=== PATIENT | male | born 2005 | race Caucasian/White ===

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

== ENCOUNTER 2023-09-15 15:28 | Outpatient (CLI) | payer BC, SELFPAY ==
[2023-09-15 11:50] LABS: Calculated LDL 200 mg/dL (<100); Cholesterol 272 mg/dL (<200); HDL Cholesterol 56 mg/dL (40-60); Triglyceride 80 mg/dL (<150)
--- OUTSIDE RECORDS SUMMARY | 2023-09-15 15:35 | XMS_ITS | Encounter Summary ---
[place] [address] Care Team Providers Care County Nurse Name Role Phone Manish Bhardwaj MD Primary Care Provider Reason for Referral * Diagnostic Test (Routine) - Authorized Specialty Diagnoses / Procedures Referred By Contac t Referred To Contact Diagnoses Elevated blood pressure reading without diagnosis of hypertension Procedures Echocardiogram Pedi Echocardiogram Silasi Luisana Walsh MD [facility] PEDIATRIC [place] [address] [facility] [place] [address] Referral ID Status Reason Start Date Expiration Date Visits Requested Visits Authorized [id number] Authorized Specialty Service Requested 10/04/2023 07/28/2024 1 1 Encounter Details Date Type Department Care Team (Late st Contact Info) Description 07/29/2023 Orders Only [place] [address] Luisana Walsh MD [facility] PEDIATRIC [place] [address] Elevated blood pressure reading without diagnosis of hypertension; Elevated LDL cholesterol level Social History Tobacco Use Types Packs/Day Years Used Date Smoking Tobacco: Never Smokeless Tobacco: Never Sex and Gender Information Value Date Recorded Sex Assigned at Not on file Gender Identity Not on file Sexual Orientation Not on file documented as of this encounter Plan of Treatment Upcoming Encounters Date Type Department Care Team (Late st Contact Info) Description 10/04/2023 9:30 AM EDT Appointment [place] [address] Luisana Walsh MD [facility] DR PEDIATRIC [place] [address] 10/04/2023 10:30 AM EDT Scheduled View [place] [address] 10/04/2023 11:00 AM EDT Office Visit [place] [phone] Luisana Walsh MD [facility] DR PEDIATRIC [place] [address] 10/04/2023 11:30 AM EDT Office Visit [place] [phone] Kam Huggins, DO [address] [facility] [place] [address] Scheduled Orders Name Type Priority Associated Diagnoses Orde r Schedule Lipid Panel (Reflex Direct LDL) Lab Routine Elevated LDL cholesterol level Expected: 07/29/2023, Expires: 01/28/2024 Lipoprotein A Lab Routine Elevated LDL cholesterol level Expected: 07/29/2023, Expires: 01/27/2025 Echocardiogram Pedi Echocardiography Routine Elevated blood pressure reading without diagnosis of hypertension Expected: 07/29/2023, Expires: 01/27/2025 documented as of this encounter Visit Diagnoses Diagnosis Elevated blood pressure reading without diagnosis of hypertension Elevated LDL cholesterol level Pure hypercholesterolemia documented in this encounter Care Teams County Nurse Relationship Specialty Start Date End Date Manish Bhardwaj MD [address] [place] [address] PCP - General Pediatrics 10/03/22 documented as of this encounter
--- OUTSIDE RECORDS SUMMARY | 2023-09-15 15:35 | XMS_ITS | Clinical Summary ---
[place] [address] Care Team Providers Care Meat Stringer Name Role Phone Manish Bhardwaj MD Primary Care Provider Allergies Active Allergy Reactions Criticality Noted Date Comments Cat Dander Itching Low 01/21/2020 Horse Dander 09/27/2022 Pollen Extracts 12/28/2018 Medications Medication Sig Dispensed Refills Start Date End Date Status ubiquinone (coenzyme Q10) 100 mg Capsule Take by mouth. 01/21/2020 Active [place]-3 Fatty Acids 100 mg Tablet, Chewable Take by mouth. 01/21/2020 A ctive levocetirizine (XYZAL) 5 mg Tablet Take by mouth. 06/08/2018 Active montelukast (Singulair) 5 mg Tablet, Chewable Take by mouth. 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 Elevated blood pressure read ing without diagnosis of hypertension 12/28/2018 Elevated LDL cholesterol level 12/28/2018 Encounters Date Type Department Care Team Description 08/03/2023 Telephone [place] [address] Luisana Walsh MD 07/29/2023 Orders [place] [address] Luisana Walsh MD Elevated blood pressure reading without diagnosis of hypertension; Elevated LDL cholesterol level from Last 3 Months Family History Medical History Relation Comments Heart Disease Maternal Aunt Sjogren's Syndrome Maternal Aunt Hypertension Maternal Grandmother Relation Status Comments Maternal Aunt Maternal Grandmother Social History Tobacco Use Types Packs/Day Years Used Date Smoking Tobacco: Never Smokeless Tobacco: Never Sex and Gender Information Value Date Recorded Sex Assigned at Not on file Gender Identity Not on file Sexual Orientation Not on file Last Filed Vital Signs Vital Sign [place] Time Taken Comments Blood Pressure 124/66 09/27/2022 10:12 AM EDT Pulse 68 09/27/2022 9:24 AM EDT Temperature - - Respiratory Rate - - Oxygen Saturation 100% 05/11/2021 9:48 AM EDT Inhaled Oxygen Concentration - - Weight 76.4 kg (168 lb 8 oz) 09/27/2022 9:24 AM EDT Height 177.2 cm (5' 9.75) 09/27/2022 9:24 AM ED T Body Mass Index 24.35 09/27/2022 9:24 AM EDT Body Mass Index Percentile 72.16% 09/27/2022 9:2 4 AM EDT Growth Chart: CDC (Boys, 2-2 0 Years) Plan of Treatment Upcoming Encounters Date Type Department Care Team (Late st Contact Info) Description 10/04/2023 9:30 AM EDT Appointment [place] [address] Luisana Walsh MD [facility] [place] [address] 10/04/2023 10:30 AM EDT Scheduled View [place] [address] 10/04/2023 11:00 AM EDT Office Visit [place] [address] Luisana Walsh MD [facility] [place] [address] 10/04/2023 11:30 AM EDT Office Visit [place] [address] Kam Huggins, DO [address] [facility] [place] [address] Health Maintenance Due Date Last Done Comments HPV vaccine (1 - Male 3-dose series) 11/20/2018 HIV screen 11/20/2021 Hepatitis C Screening 11/20/2021 Covid-19 Vaccine (1 - 2022-24 season) 2022 Hepatitis B vaccine (0-59 yrs) (1) 11/20/2022 Tdap adult 11/20/2022 Tetanus vaccine 11/20/2022 Influenza (Flu) vaccine (1 o f 1 - Influenza standard series) 10/16/2023 Care Teams Meat Stringer Relationship Specialty Start Date End Date Manish Bhardwaj MD [address] [place] [address] PCP - General Pediatrics 10/03/22
--- OUTSIDE RECORDS SUMMARY | 2023-09-15 15:35 | XMS_ITS | Encounter Summary ---
Author Organization [facility] Address [facility] [place] [address] Care Team Providers Care Asset Recovery Specialist Name Role Phone Manish Bhardwaj MD Primary Care Provider [phone] Encounter Details Date Type Department Care Team (Late st Contact Info) Description 08/03/2023 Telephone Pediatric [place] [phone] Luisana Walsh MD [facility] DR [place] [address] Social History Tobacco Use Types Packs/Day Years Used Date Smoking Tobacco: Never Smokeless Tobacco: Never Sex and Gender Information Value Date Recorded Sex Assigned at Not on file Gender Identity Not on file Sexual Orientation Not on file documented as of this encounter Miscellaneous Notes * Telephone Encounter - Luisana Walsh MD - 08/03/2023 9:05 AM EDT ----- Message from Laurie Cerna sent at 08/01/2023 1:53 PM EDT ----- Regarding: RE: follow up visit missed Patient would like to have Labs done more locally at [facility] and then sent here. ----- Message ----- From: Luisana Walsh MD Sent: 07/29/2023 9:18 PM EDT To: Laurie Archuleta Subject: RE: follow up visit missed Orders for echo and lipid panel are in. I also added something called lipoprotien (a) which is a newer marker we are checking on kids at risk in case the family asks - its becoming a standard part oflipid panel checks. Can you see if they can set up a follow up with param sheikh the same day? That's what the last nephro note said - follow up in summer 2023 to coordinate with our visit. Lastly, when you schedule, can you please put in note Needs 4-ext BPs Thank you, Luisana ----- Message ----- From: Laurie Archuleta Sent: 07/27/2023 4:32 PM EDT To: Luisana Walsh MD Subject: follow up visit missed Patient missed recall (I called) and is looking to be scheduled. Your plan in the recall is Office visit and echocardiogram, with lipid panel prior to appt.There will be an ECHO order needed and if lipid panel is needed too those orders as well. Let me know if we are still going with this plan and I can then call mom back to schedule. Thank you. documented in this encounter Plan of Treatment Upcoming Encounters Date Type Department Care Team (Late st Contact Info) Description 10/04/2023 9:30 AM EDT Appointment [place] [address] Luisana Walsh MD [facility] [place] [address] 10/04/2023 10:30 AM EDT Scheduled View Only [place] [address] 10/04/2023 11:00 AM EDT Office Visit [place] [address] Luisana Walsh MD [facility] [place] [address] 10/04/2023 11:30 AM EDT Office Visit [place] [address] Kam Huggins, DO [address] [facility] [place] [address] documented as of this encounter Visit Diagnoses Not on filedocumented in this encounter Care Teams Asset Recovery Specialist Relationship Specialty Start Date End Date Manish Bhardwaj [place] [address] PCP - General Pediatrics 10/03/22 documented as of this encounter
--- OUTSIDE RECORDS SUMMARY | 2023-09-15 15:35 | XMS_ITS | Encounter Summary ---
[place] [address] Care Team Providers Care Ramp Service Man Name Role Phone Unknown Primary Care Provider Unavailabl e Encounter Details Date Type Department Care Team (Latest Contact Info) Description 09/27/2022 Travel Social History Tobacco Use Types Packs/Day Years [...] 9:30 AM EDT Appointment [place] [address] Luisana Walsh MD [facility] [place] [address] 10/04/2023 10:30 AM EDT Scheduled View [place] [address] 10/04/2023 11:00 AM EDT Office [place] [address] Luisana Walsh MD [facility] [place] [address] 10/04/2023 11:30 AM EDT Office Visit [place] [address] Kam Huggins, DO [address] [facility] PEDIATRIC [place] [address] documented as of this encounter Visit Diagnoses Not on filedocumented in this encounter Care Teams Ramp Service Man Relationship Specialty Start Date End Date Unknown None PCP - General 06/30/21 10/02/22 documented as of this encounter
--- OUTSIDE RECORDS SUMMARY | 2023-09-15 15:35 | XMS_ITS | Encounter Summary ---
Author Organization [facility] [place] [address] Care Team Providers Care Honing Machine Operator Name Role Phone Unknown Primary Care Provider Unavailabl e Encounter Details Date Type Department Care Team (Late st Contact Info) Description 09/27/2022 9:30 AM EDT Office Visit [place] [address] Saad Munroe MD [facility] [place] [address] Elevated blood pressure reading without diagnosis of hypertension Social History Tobacco Use Types Packs/Day Years Used Date Smoking Tobacco: Never Smokeless Tobacco: Never Sex and Gender Information Value Date Recorded Sex Assigned at Not on file Gender Identity Not on file Sexual Orientation Not on file documented as of this encounter Last Filed Vital Signs Vital Sign Reading Time Taken Comments Blood Pressure 124/66 09/27/2022 10:12 AM EDT Pulse 68 09/27/2022 9:24 AM EDT Temperature - - Respiratory Rate - - Oxygen Saturation - - Inhaled Oxygen Concentration - - Weight 76.4 kg (168 lb 8 oz) 09/27/2022 9:24 AM EDT Height 177.2 cm (5' 9.75) 09/27/2022 9:24 AM ED T Body Mass Index 24.35 09/27/2022 9:24 AM EDT Body Mass Index Percentile 72.16% 09/27/2022 9:2 4 AM EDT Growth Chart: CDC (Boys, 2-2 0 Years) documented in this encounter Patient Instructions * Patient Instructions* Saad Munroe MD - 09/27/2022 9:30 AM EDT It was a pleasure meeting you today. Thank you again for coming to see us. As discussed, your BP today was borderline elevated for the top number (aka systolic), but completely normal on the bottom number (diastolic). I think it's reasonable to hold off on a BP med for now and see how things are going next summer. Just remember, always stay active and eat well, including lots of fruits and vegetables. We'll plan to see you next summer in coordination with peds cardiology. It was a pleasure meeting you today. Thank you again for coming to see us. documented in this encounter Progress Notes * Saad Munroe MD - 09/27/2022 9:30 AM EDT Pediatric Nephrology Follow-up Clinic Visit HPI: Aureliano Mancilla is an 16 y.o. 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 He's had a 24 hr ABPM in 12/2018 was normal and reassuring, with borderline systolic and diastolic loads of ~26% while asleep only. Labs in 11/2018 showed normal BMP with normal renal function ([facility] mg/dL at [facility] A repeat 24- hour ABPM from 10/2021 showed elevated systolic blood pressures but normal diastolic BP's more while asleep, and abnormal dipping at < 10%. He's had renal US w/ dopplers in 07/2019 that did not reveal any evidence of significant renal artery stenosis, and normalhealthy appearing kidneys. 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 Whether or not this has contributed to his more elevated BP's in the past is not completely clear. Interval HPI: He is here for a follow-up visit with his mother and father in attendance. We last saw him about 5 months ago in 04/2022, where his BP was reportedly 122/58 mmHg in clinic. He's been doing well since we last saw him and remains asymptomatic from a BP standpoint. He decided on [employer] for college, and will be starting Freshman year this fall. Manual auscultation in clinic today revealed BP's of 124/66 mmHg and 132/70 mmHg. He's never had a UTI or any urinary concerns. He is active and eats a relatively well balanced diet. He's played soccer and basketball throughout high school. No issues with sleep. FH of hypertension on maternal side; both maternal grandparents and great grandparents have h/o HTN. Mom does not have HTN. PCP: [facility] Since his last visit he has been on the Current Outpatient Medications: ubiquinone (coenzyme Q10) 100 mg Capsule, Take by mouth., Disp: , Rfl: [place]-3 Fatty Acids 100 mg Tablet, Chewable, Take by mouth., Disp: , Rfl: levocetirizine (XYZAL) 5 mg Tablet, Take by mouth., Disp: , Rfl: montelukast (Singulair) 5 mg Tablet, Chewable, Take by mouth., Disp: , Rfl: Problem List: Patient Active Problem List Diagnosis Code Elevated blood pressure reading without diagnosis of hypertension R03.0 Elevated LDL cholesterol level E78.00 Hypoplasia of aortic arch Q25.42 History of circumcision Z98.890 PMHx:History reviewed. No pertinent past medical history. PSHx:History reviewed. No pertinent surgical history. SocHx: Social History Social History Narrative Lives with his mother and father. Will be starting college at [employer] in the Fall of 2022. FamHx: Family History Problem Relation Age of Onset Heart Disease Maternal Aunt Sjogren's Syndrome Maternal Aunt Hypertension Maternal Grandmother Allergies: is allergic to horse dander, pollen extracts, and cat dander. ROS: 10 systems reviewed and negative other than noted above. Health Maintenance: Health Maintenance Topic Date Due Hepatitis B vaccine (0-59 yrs) (1) Never done Covid-19 Vaccine (1) Never done Hepatitis A vaccine 0-18 yrs (1 of 2 - 2-dose series) Never done Varicella vaccine 1-18 yrs (1 of 2 - 2-dose childhood series) Never done MMR vaccine 1-18 yrs (1) Never done Dtap/DT/Tdap/TD vaccines 0-18yrs (1 - Tdap) Never done HPV vaccine (1 - Male 2-dose series) Never done Meningococcal vaccine 0-18 yrs (1 - 2-dose series) Never done Hepatitis C Screening Never done HIV screen Never done Influenza (Flu) vaccine (1 of 1 - Influenza standard series) 10/15/2022 Polio Vaccine 0-18 yrs Aged Out Objective: BP 124/66 (BP Location (NBP): Left arm, Patient Position: Sitting, BP Cuff Sizes: Adult (25-34 cm)) Pulse 68 Ht 177.2 cm (5' 9.75) Wt 76.4 kg (168 lb 8 oz) BMI 24.35 kg/m?? Wt Readings from Last 3 Encounters: 09/27/22 76.4 kg (168 lb 8 oz) (73 %)* 04/20/22 78.3 kg (172 lb 9.6 oz) (79 %)* 12/17/21 77.1 kg (170 lb) (78 %)* * Growth percentiles are based on CDC (Boys, 2-20 Years) data. .Body mass index is 24.35 kg/m??. Blood pressure percentiles are not available for patients who are 18 years or older. Physical Exam: General: WD, WN in NAD; pleasant and interactive adolescent male HEENT: Normocephalic, atraumatic; external ears normal and symmetric; Extraocular muscles intact, Sclerae anicteric; Oropharynx and nasopharynx without erythema, hemorrhage, or exudate. Neck: supple, no adenopathy or thyromegaly CVS: regular rate and rhythm; S1 and S2 appreciated without murmurs. Distal pulses 2+ & symmetric, Capillary refill < 2 seconds Lungs: chest symmetric and clear to auscultation bilaterally with vesicular breath sounds; no wheezes or crackles Abdomen: Soft, non-tender, non-distended, no hepatosplenomegaly or masses. Renal angles are nontender. Bowel sounds are normal. Extremities: warm and well perfused; no cyanosis or edema Skin: normal turgor; clear with no rashes, lesions, or skin breakdown Musculoskeletal: Joints are normal and his spine is unremarkable. Neurological: alert & active; strength and sensation grossly intact throughout; reflexes symmetric and intact; no focal deficits identified. Gait normal. Labs obtained today: I have reviewed prior labs and imaging. Did no provide a urine sample today. Assessment/ Plan : Aureliano Mancilla is a 16 y.o. male with no significant PMH other than seasonal allergies,who we are seeing as a follow-up for h/o elevated blood pressure/hypertension, suspected to be essential in nature. His BP today was 124/66 mmHg and 132/70 mmHg, which is elevated/borderline State I HTN for systolic, and completely normal for diastolic. He's overall doing well and asymptomatic from a BP standpoint. He's had a normal renal ultrasound, normal kidney function, and no evidence of long-standing hypertension per his last echo in 04/2021, so I thought it was reasonable to hold off on starting an antihypertensive medication at this point in time, which is his preference as well, and to continue to monitor him and see how things are going next summer. Just remember, always stay active and eat well, including lots of fruits and vegetables. We'll plan to see you next summer, 2023 in coordination with peds cardiology, who plans to repeat your echo at that time. Will consider repeating a set of labs at that time as well. Saad Munroe MD Pediatric Nephrology [facility]'s Manish Bhardwaj MD 40 minutes were personally spent by myself on this date of service managing this patient's care. Activities included all or some of the following: preparing to see the patient (e.g., review of vitalsand lab/imaging results), obtaining and/or reviewing a separately obtained history, performing a medically appropriate exam and/or evaluation, counseling and educating the patient/family/caregiver, ordering medications, tests, or procedures, referring and communicating with other health child caregiver (when not separately reported), documenting clinical information in the electronic or other health record, independently interpreting results (not separately reported) and communicating results to the patient/family/caregiver, and/or care coordination (not separately reported). documented in this encounter Plan of Treatment Upcoming Encounters Date Type Department Care Team (Late st Contact Info) Description 10/04/2023 9:30 AM EDT Appointment [place] [address] [facility] [place] [address] 10/04/2023 10:30 AM EDT Scheduled View [place] [address] 10/04/2023 11:00 AM EDT Office [place] [address] [facility] [place] [address] 10/04/2023 11:30 AM EDT Office Visit [place] [address] Kam Huggins, DO [address] [facility] [place] [address] documented as of this encounter Visit Diagnoses Diagnosis Elevated blood pressure reading without diagnosis of hypertension documented in this encounter Care Teams Honing Machine Operator Relationship Specialty Start Date End Date Unknown None PCP - General 06/30/21 10/02/22 documented as of this encounter
--- OUTSIDE RECORDS SUMMARY | 2023-09-15 15:35 | XMS_ITS | Encounter Summary ---
[place] [address] Care Team Providers Care R&D Engineer Name Role Phone Unknown Primary Care Provider Unavailabl e Encounter Details Date Type Department Care Team (Latest Contact Info) Description 04/20/2022 Travel Social History Tobacco Use Types Packs/Day [...] 9:30 AM EDT Appointment [place] [address] Luisana Walsh MD [facility] [place] [address] 10/04/2023 10:30 AM EDT Scheduled View [place] [address] 10/04/2023 11:00 AM EDT Office [place] [address] Luisana Walsh MD [facility] [place] [address] 10/04/2023 11:30 AM EDT Office [place] [address] Kam Huggins, DO [address] [facility] [place] [address] documented as of this encounter Visit Diagnoses Not on filedocumented in this encounter Care Teams R&D Engineer Relationship Specialty Start Date End Date Unknown None PCP - General 06/30/21 10/02/22 documented as of this encounter
--- OUTSIDE RECORDS SUMMARY | 2023-09-15 15:35 | XMS_ITS | Encounter Summary ---
[place] [address] Care Team Providers Care Manager Paid Name Role Phone Unknown Primary Care Provider Unavailabl e Encounter Details Date Type Department Care Team (Late st Contact Info) Description 04/20/2022 11:00 AM EST Office Visit [place] [phone] Kam Huggins, DO [address] [facility] PEDIATR[facility] [place] [address] Hypertension, unspecified type Social History Tobacco Use Types Packs/Day Years Used Date Smoking Tobacco: Never Smokeless Tobacco: Never Sex and Gender Information Value Date Recorded Sex Assigned at Not on file Gender Identity Not on file Sexual Orientation Not on file documented as of this encounter Last Filed Vital Signs Vital Sign Reading Time Taken Comments Blood Pressure 138/60 04/20/2022 11:13 AM EST thiago Pulse - - Temperature - - Respiratory Rate - - Oxygen Saturation - - Inhaled Oxygen Concentration - - Weight 78.3 kg (172 lb 9.6 oz) 04/21/19 11:13 AM EST Height 176.3 cm (5' 9.4) 04/20/2022 11 :13 AM EST Body Mass Index 25.2 04/20/2022 11:13 AM EST Body Mass Index Percentile 80.89% 04/20 11:13 AM EST Growth Chart: CDC (Boys, 2-2 0 Years) documented in this encounter Patient Instructions * Patient Instructions* Kam Huggins, DO - 04/20/2022 11:00 AM EST Aureliano's Plan: Will see back in 6 months Take BP at home or at school and let us know the results. Can work with the health center when you are there Continue current therapies: CoQ10 to 200-400 mg a day, Range 3 fats to 2000 mg a day Will consider BP meds 80/20 rule for school Ok for [facility] Call if any questions Prior recs The anti-inflammatory diet I recommend increasing fruits and vegetables up to at least 5 servings per day, use olive oil or canola oil only, increase grains and keep noodles al dente. Smoothies are agreat way to increase your fruit intake. You could add ground flax seed to it to add the Range 3???s. We can discuss the elimination diet in the future if you would like or see no improvement. Remember to think of your food as part of your healing process. Vitamin D3: 2000 Units/day Fish oil/krill oil/flaxseed: If possible take 2-4grams per day. We want the highest dose of DHA/EPAas possible, as close to 1-2gms per day. Therefore, I would start with about 2 caps per day and increase to twice a day if tolerated or about 1 tsp of the oil. KiddOmega from Entrec, 1 tsp a day, from [employer] or Fandeavor, Vino Volo Range-3 (350 mg of EPA and 230 mg of DHA per packet) are ones I commonly used in children. Also consider Barleans flavored omega 3???s or Marana Naturals Juan M chewables. If you choose to use flaxseed oil, you will need to double the dose. Also, you can add 2 teaspoons to 2 tablespoons of ground flaxseed to your food every day. To avoid GI side effe cts, freeze the capsules, get enteric coated capsules and /or take with food. Do not get gummies, they have very little to no fish oil in them. Hypnosis/Mind-Body: Hypnosis can be helpful for the above issues. If you want to start using this technique, make a recording of the transcript from the handouts we gave you and practice it every night before you go to sleep. If you need more help with this we can work with it here in my office or set you up with a local practitioner. In addition, If you want to try biofeedback instead, I recommend the system at [employer], [employer] or we can work with you here in my office with a similar technique. See sheets. Exercise every day as previously discussed, in particular yoga/jermaine chi/walking/dancing. For yoga there are a number of videos or teachers. If you need help finding a teacher please call the office. To start, I usually recommend one full class a week and practice 10 to 15 min. a day. Remember to thank your body for all of its wellness as you start your daily training. Relaxation online and CD resources http://www.mindfulnessWasabi 3D.Groupsite/ Dr Hernandez Miller's mindfulness meditation tapes http://www.MailFrontier.Groupsite/pmr.htm Guide to progressive muscle relaxation http://www.DxUpClose/health/yoga/HL45837 5 Yoga poses for stress management http://www.Inneractive.org/ Connecting students with teachers in the area. www.Tosk.com Search for meditation, relaxation, guided visualization or yoga. Keep sifting through until you find what you like and then write it down so you can revisit. http://www.[facility].edu/files/webfm-uploads/documents/outreach/im/module_medi tation_patient.pdf Handout on types of meditation/CDs: Breathing: the Master Busby to Self-Healing (Chad Ponce) Relieve Anxiety (Jose Mckoy), also Deep Sleep (Leelee) For Breath work consider: http://doasone.com/Default.aspx Botanicals/Supplements Dark chocolate (70% cocoa content) in place of other sweets Consider coenzyme Q10 100-400 mg a day Consider hawthorn, an herb which promotes overall cardiovascular health See handout documented in this encounter Progress Notes * Kam Huggins DO - 04/20/2022 11:00 AM EST Pediatric Nephrology/Integrative Medicine Progress Note Aureliano Mancilla is an 16 y.o. male with elevated BP who we are seeing for integrative techniques regarding the above. Referred by PCP * Please note: speech recognition soft ricks was used to generate this report. Although it is proofed for any obvious mistakes, please excuse any spelling or incorrect grammar that may have been missed. HISTORY OF PRESENT ILLNESS He has been doing well since his last visit to the program. He is trying decide where to go to the [facility] or [employer]. He is waiting to hear back from the latter school. His blood pressure taken by me today was 122/58., The omega-3's, he has been using the co-Q10 and the vitamin D. He has been working hard on exercising well and staying healthy staying healthy. His 24-hour blood pressure monitor did show elevated systolic blood pressures but normal diastolic blood pressures. His pressure has been improved more recently. We again talked about long-term outcomes, potentially starting medications, and how to continue to stay healthy. In addition, we had an extensive discussion about things that may occur while he is in college and following him during that time. Denies any other neurologic, rheumatologic, GI, pulmonary, cardiac, urologic, or musculoskeletal issues. Prior/Initial HPI Aureliano comes in today in referred consultation regarding the above. He has been noted to have significant hypertension in the past. He was seen by cardiology. They made lifestyle recommendations. He did an excellent job making some of the changes. He made significantdietary changes, he has continued to exercise, and has had a noticeable improvement in his blood pressure. He had a 24-hour blood pressure monitor done which showed only a slight increase in his blood pressure. They have been following his echocardiogram regularly. He has been taking some fish oil because his cholesterol was on the higher end but only 1 capsule a day. He is interested in looking at a more healthy way of approaching this. His renal ultrasound was done today which showed the kidneys better measure roughly 10 cm bilaterally. There is no hydronephrosis or hydroureter. They are equal in size. Doppler studies that were done earlier were normal. Denies any other neurologic, rheumatologic, GI, pulmonary, cardiac, urologic, or musculoskeletal issues. Past Medical History: Patient Active Problem List Diagnosis Code ??? Elevated blood pressure reading without diagnosis of hypertension R03.0 ??? Elevated LDL cholesterol level E78.00 ??? 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 Heart Disease Maternal Aunt ??? Sjogren's Syndrome Maternal Aunt ??? Hypertension Maternal Grandmother Current Outpatient Medications on File Prior to Visit Medication Sig Dispense Refill ??? ubiquinone (coenzyme Q10) 100 mg Capsule Take by mouth. ??? Range-3 Fatty Acids 100 mg Tablet, Chewable Take by mouth. ??? levocetirizine (XYZAL) 5 mg Tablet Take by mouth. ??? montelukast (Singulair) 5 mg Tablet, Chewable Take by mouth. No current facility-administered medications on file prior to visit. The above Medications and Supplements Are As per Report from the Family and the Patient. Allergies Allergen Reactions ??? Pollen Extracts ??? Cat Dander Itching PHYSICAL EXAM Constitutional: BP 138/60 Comment: thiago Ht 176.3 cm (5' 9.4) Wt 78.3 kg (172 lb 9.6 oz) BMI 25.20 kg/m?? 122/58 by me General Appearance: alert, well appearing and in no distress HEENT: normocephalic, atrumatic, conjunctiva clear, no periorbital edema, moist mucous membranes and oropharynx clear Neck: supple and no adenopathy or masses, no thyroid enlargement Chest: clear to auscultation, bilaterally and normal respiratory effort Cardiovascular: regular rate and rhythm, S1, S2 and no murmurs Examination of Abdomen: soft, nontender, non-distended, no masses, bowel sounds normal and no hepatosplenomegaly Back: normal Extremities: no edema, warm and well perfused, bilaterally and pulses full and equal all extremities Neurologic: no gross deficit Skin: normal ASSESSMENT Aureliano is a 16 y.o. male with elevated BP He has been noted to have significant hypertension in the past. He was seen by cardiology. They made lifestyle recommendations. He did an excellent job making some of the changes. He made significantdietary changes, he has continued to exercise, and has had a noticeable improvement in his blood pressure. He had a 24-hour blood pressure monitor done which showed only a slight increase in his blood pressure. They have been following his echocardiogram regularly. He has been taking some fish oil because his cholesterol was on the higher end but only 1 capsule a day. He is interested in looking at a more healthy way of approaching this. His renal ultrasound was done today which showed the kidneys better measure roughly 10 cm bilaterally. There is no hydronephrosis or hydroureter. They are equal in size. Doppler studies that were done earlier were normal. He has been doing well since his last visit to the program. He is trying decide where to go to the [facility] or [employer]. He is waiting to hear back from the latter school. His blood pressure taken by me today was 122/58., The omega-3's, he has been using the co-Q10 and the vitamin D. He has been working hard on exercising well and staying healthy staying healthy. His 24-hour blood pressure monitor did show elevated systolic blood pressures but normal diastolic blood pressures. His pressure has been improved more recently. We again talked about long-term outcomes, potentially starting medications, and how to continue to stay healthy. In addition, we had an extensive discussion about things that may occur while he is in college and following him during that time. When looking at high blood pressure, the question is first if there is true hypertension and then determining if it is primary and secondary. In the past, HTN was typically considered likely to be secondary in children but with the increased rates of obesity, sedentary life style, and dietary changes, finding secondary causes are much less likely particularly in adolescents. Therefore, the evaluation is based on age and degree of hypertension-the younger the patient and the higher the blood pressure the greater the likelihood of secondary HTN. When looking at secondary causes the most likely reason is related to renal issues (renal parenchymal disease, renal vascular issues, renal failure etc). Other causes would be thyroid issues, adrenal issues and AUTOMATIC SEAMER disease- all of which typically have more symptomatic presentation. To determine if we have sustained HTN we would consider a echo looking for LVH. To screen for renal disease we would consider renal function testing, urinalysis and renal ultrasound with further investigation based on the findings and clinical picture (IE PRA, aldosterone level TSH etc). We also need to consider comorbidity such as high cholesterol. See below. From an integrative standpoint, we take a mind body spirit approach and we look at multiple principles including treatment of the acute process, decreasing chronic flares, changing from a disease to a wellness model, and decreasing side effects of medications. Obviously there are multiple approaches that we can take for Aureliano regarding all of his different illnesses. Fortunately some of these ov erlap. We have multiple modalities available to us including conventional medicine, whole systems such as traditional Mongolian medicine, Ayurvedic medicine, Western medicine and homeopathy, nutrition,exercise, supplements, botanical medicine, mind body therapies, energy medicine, manual manipulation, and spirituality. I think there are a number of things that we can do for Aureliano to help as indicated below. PLAN I recommend the following plan for Aureliano: Patient Instructions Aureliano's Plan: Will see back in 6 months Take BP at home or at school and let us know the results. Can work with the health center when you are there Continue current therapies: CoQ10 to 200-400 mg a day, Range 3 fats to 2000 mg a day Will consider BP meds 80/20 rule for school Ok for [facility] Call if any questions Prior recs The anti-inflammatory diet I recommend increasing fruits and vegetables up to at least 5 servings per day, use olive oil or canola oil only, increase grains and keep noodles al dente. Smoothies are agreat way to increase your fruit intake. You could add ground flax seed to it to add the Range 3???s. We can discuss the elimination diet in the future if you would like or see no improvement. Remember to think of your food as part of your healing process. Vitamin D3: 2000 Units/day Fish oil/krill oil/flaxseed: If possible take 2-4grams per day. We want the highest dose of DHA/EPAas possible, as close to 1-2gms per day. Therefore, I would start with about 2 caps per day and increase to twice a day if tolerated or about 1 tsp of the oil. KiddOmega from Entrec, 1 tsp a day, from [employer] or [employer], Vino Volo Range-3 (350 mg of EPA and 230 mg of DHA per packet) are ones I commonly used in children. Also consider Barleans flavored omega 3???s or Marana Naturals Juan M chewables. If you choose to use flaxseed oil, you will need to double the dose. Also, you can add 2 teaspoons to 2 tablespoons of ground flaxseed to your food every day. To avoid GI side effe cts, freeze the capsules, get enteric coated capsules and /or take with food. Do not get gummies, they have very little to no fish oil in them. Hypnosis/Mind-Body: Hypnosis can be helpful for the above issues. If you want to start using this technique, make a recording of the transcript from the handouts we gave you and practice it every night before you go to sleep. If you need more help with this we can work with it here in my office or set you up with a local practitioner. In addition, If you want to try biofeedback instead, I recommend the system at [employer], [employer] or we can work with you here in my office with a similar technique. See sheets. Exercise every day as previously discussed, in particular yoga/jermaine chi/walking/dancing. For yoga there are a number of videos or teachers. If you need help finding a teacher please call the office. To start, I usually recommend one full class a week and practice 10 to 15 min. a day. Remember to thank your body for all of its wellness as you start your daily training. Relaxation online and CD resources http://www.mindfulnesstapes.com/ Dr Hernandez Miller's mindfulness meditation tapes http://www.MailFrontier.Groupsite/pmr.htm Guide to progressive muscle relaxation http://www.DxUpClose/health/yoga/NC86643 5 Yoga poses for stress management http://www.Inneractive.org/ Connecting students with teachers in the area. www.youAffibodyube.com Search for meditation, relaxation, guided visualization or yoga. Keep sifting through until you find what you like and then write it down so you can revisit. http://www.fammed.[facility].edu/files/webfm-uploads/documents/outreach/im/module_medi tation_patient.pdf Handout on types of meditation/CDs: Breathing: the Master Busby to Self-Healing (Chad Ponce) Relieve Anxiety (Jose Mckoy), also Deep Sleep (Leelee) For Breath work consider: http://SOHM.Groupsite/Default.aspx Botanicals/Supplements Dark chocolate (70% cocoa content) in place of other sweets Consider coenzyme Q10 100-400 mg a day Consider hawthorn, an herb which promotes overall cardiovascular health See handout I had an extensive visit (45 minutes) with Aureliano and his family. I outlined the above issues. 35 minutes of the time was spent counseling regarding the above. They appear to understand and agree withthe plan. I asked them to come back in 6 months. Kam Huggins DO CC:Unknown documented in this encounter Plan of Treatment Upcoming Encounters Date Type Department Care Team (Late st Contact Info) Description 10/04/2023 9:30 AM EDT Appointment [place] [phone] [facility] [place] [address] 10/04/2023 10:30 AM EDT Scheduled View [place] [address] 10/04/2023 11:00 AM EDT Office [place] [address] [facility] [address] [place] [address] 10/04/2023 11:30 AM EDT Office [place] [address] Kam Huggins DO [address] [facility] PEDIATRIC [place] [address] documented as of this encounter Visit Diagnoses Diagnosis Hypertension, unspecified type documented in this encounter Care Teams Manager Paid Relationship Specialty Start Date End Date Unknown None PCP - General 06/30/21 10/02/22 documented as of this encounter
--- OUTSIDE RECORDS SUMMARY | 2023-09-15 15:36 | XMS_ITS | Encounter Summary ---
Author Organization [facility] [place] [address] Care Team Providers Care Border Patrol Agent Name Role Phone Malcolm Yi MD Primary Care Provider Encounter Details Date Type Department Care Team (Latest Contact Info) Description 08/09/2019 2:30 PM EDT Clinical [place] [phone] Nafisa Oneal I, PU[facility] PEDIATRIC [place] [address] Elevated LDL cholesterol level; Hypertension, unspecified type; Dietary counseling and surveillance Social History Tobacco Use Types Packs/Day Years Used Date Smoking Tobacco: Never Smokeless Tobacco: Never Sex and Gender Information Value Date Recorded Sex Assigned at Not on file Gender Identity Not on file Sexual Orientation Not on file documented as of this encounter Last Filed Vital Signs Vital Sign Reading Time Taken Comments Blood Pressure 138/75 08/09/2019 2:01 PM EDT Pulse 68 08/09/2019 2:01 PM EDT Temperature - - Respiratory Rate - - Oxygen Saturation - - Inhaled Oxygen Concentration - - Weight 70.4 kg (155 lb 3.3 oz) 08/09/2019 2:01 P M EDT Height 173.9 cm (5' 8.47) 08/09/2019 2:01 PM ED T Body Mass Index 23.28 08/09/2019 2:01 PM EDT Body Mass Index Percentile 81.01% 08/09/2019 2:0 1 PM EDT Growth Chart: CDC (Boys, 2-2 0 Years) documented in this encounter Progress Notes * Nafisa Oenal Yao, RD - 08/09/2019 2:30 PM EDT [facility] Nutrition Assessment Aureliano Mancilla is a 13 y.o. male, referred by Dr Walsh, seen for nutrition assessment and education regarding hyperlipidemia and HTN. Met with pt and his mother at today's visit. Assessment: Anthropometrics: Pediatric Vitals 08/09/2019 Height to cm. 173.9 cm Height in feet/inches 5' 8.465 Height in inches 68 in Height percentile 56.2 Weight (Niuean) 155 lb 3.3 oz Weight (Metric) 70.4 kg Weight percentileimm 81.2 BMI 23.28 kg/m2 BMI percentile 81.0 Medical History: Patient Active Problem List Diagnosis Code ??? Hypertension I10 ??? Elevated LDL cholesterol level E78.00 Family history: There is no family history of congenital heart disease, arrhythmias or sudden unexplained .?MGF has HTN, MGM has HTN and bicuspid aortic valve. Maternal great aunt had a myocardial infarction at young age. Maternal aunt with Sjogren's syndrome.? Social history:??In 9th grade, plays soccer and basketball nearly year round. Medications Reviewed: No current outpatient medications on file prior to visit. No current facility-administered medications on file prior to visit. Nutrition Assessment: Diet Recall- Sparkling water drink-12 oz can 2 daily Breakfast:leftovers form night before; bnanba and orange; skim milk AM snack: orange and apple Lunch: varies Chicken, turkey breast sand with cheese mustard sand; 50% fat red cheese-cabot or low fat chadian or surinamese PM Snack: occasionally if has one it might be odilon bar; pb and fruit, hummus on occasion Dinner: chicken parm 6-8 oz salad-arugula, spinach, mixed greens or iceberg & cukes, mata tomatoes, onions, apples with vinegar based dressing and panera fuji apple,asparagus, cauliflower, broccoli milk or clear surinamese bumble water Evening Snack: 10 PM nonfat pudding, yogurt, pb & j sandwich; leftovers from lunch or dinner Food preferences: avoids red meat; ground turkey burgers:6-8 oz; fish quite often--once weekly Light sour cream Food Allergies: none known Exercise/Activity: pretty active; 2 sports, soccer fall, spring, and summer, swimming, walk the dog Nutrient Needs: Kcal needs 2900 [x] meeting [] not meeting [] exceeding [] see note below Protein needs 105-110 grams [x] meeting [] not meeting [] exceeding [] see note below Vit/min needs DRI for age [x] meeting [] not meeting [] exceeding [] see note below Fluid needs 2500 mL [x] meeting [] not meeting [] exceeding [] see note below Motivation For Change: good Understanding For Information: good Nutrition Diagnosis/Assessment: Hyperlipidemia and HTN for which he has made some diet and lifestyle changes to help manage such asdecreasing sugary drinks and maintaining an active lifestyle. Reviewed an antiinflammatory diet (Meditearrean diet), ways to increase omega 3's in his diet, complex carbohydrates and minimize added salt. Provided handouts related to this information discussed. Monitoring and Evaluation: Goals/Plans: Increase [place] 3's via fish and plant sources. Continue to work toward low sodium diet/dash diet. Maintain an active lifestyle. Will follow-up with goal progress at next visit to be coordinated with next cardiology visit. ALE: 60 minutes documented in this encounter Plan of Treatment Upcoming Encounters Date Type Department Care Team (Late st Contact Info) Description 10/04/2023 9:30 AM EDT Appointment [place] [address] Luisana Walsh MD [facility] PEDIATRIC [place] [address] 10/04/2023 10:30 AM EDT Scheduled View [place] [address] 10/04/2023 11:00 AM EDT Office Visit [place] [phone] Luisana Walsh MD [facility] PEDIATRIC [place] [address] 10/04/2023 11:30 AM EDT Office Visit [place] [phone] Kam Huggins, DO [address] [facility] [place] [address] documented as of this encounter Visit Diagnoses Diagnosis Elevated LDL cholesterol level Pure hypercholesterolemia Hypertension, unspecified type Dietary counseling and surveillance Dietary surveillance and counseling documented in this encounter Care Teams Border Patrol Agent Relationship Specialty Start Date End Date Malcolm Yi MD [address] [place] [address] PCP - General Pediatrics 12/22/18 06/29/21 documented as of this encounter
--- OUTSIDE RECORDS SUMMARY | 2023-09-15 15:36 | XMS_ITS | Encounter Summary ---
[place] [address] Care Team Providers Care Induction Heating Equipment Setter Name Role Phone Malcolm Yi MD Primary Care Provider [phone] Encounter Details Date Type Department Care Team (Late st Contact Info) Description 05/22/2020 9:30 AM EDT Office Visit Pediatric [place] [address] Kam Huggins, DO [address] [facility] [place] [address] Hypertension, unspecified type Social History Tobacco Use Types Packs/Day Years Used Date Smoking Tobacco: Never Smokeless Tobacco: Never Sex and Gender Information Value Date Recorded Sex Assigned at Not on file Gender Identity Not on file Sexual Orientation Not on file documented as of this encounter Last Filed Vital Signs Vital Sign Reading Time Taken Comments Blood Pressure 132/68 05/22/2020 9:29 AM EDT Pulse 68 05/22/2020 9:29 AM EDT Temperature - - Respiratory Rate - - Oxygen Saturation - - Inhaled Oxygen Concentration - - Weight 73.7 kg (162 lb 6.4 oz) 05/22/2020 9:29 A M EDT Height 175.3 cm (5' 9) 05/22/2020 9:29 AM EDT Body Mass Index 23.98 05/22/2020 9:29 AM EDT Body Mass Index Percentile 81.76% 05/22/2020 9:2 9 AM EDT Growth Chart: CDC (Boys, 2-2 0 Years) documented in this encounter Patient Instructions * Patient Instructions* BhavnaKam Shola, DO - 05/22/2020 9:30 AM EDT Aureliano's Plan: Will see back in 6 months Continue current therapies Will put in order for lipids. Call prior to going so we can send in th orders Prior recs The anti-inflammatory diet I recommend increasing fruits and vegetables up to at least 5 servings per day, use olive oil or canola oil only, increase grains and keep noodles al dente. Smoothies are agreat way to increase your fruit intake. You could add ground flax seed to it to add the Loveland 3???s. We can discuss the elimination diet [...] 1 tsp of the oil. KiddOmega from [facility], 1 tsp a day, from Inter[employer] or [employer], SkyPicker.comomeTripGems Loveland-3 (350 mg of EPA and 230 mg of DHA per packet) are ones I commonly used in children. Also consider Barleans flavored omega 3???s or [place] Naturals Juan M chewables. If you choose [...] biofeedback instead, I recommend the system at [employer], Kik or we can work with you here [...] daily training. Relaxation online and CD resources http://www.mindfulnesstapes.Bestowed/ Dr Hernandez Miller's mindfulness meditation tapes http://www.ScanScout.Bestowed/pmr.htm Guide to progressive muscle relaxation http://www.Jigsaw24/health/yoga/PJ23992 5 Yoga poses for stress management http://www.[employer].org/ Connecting students with teachers in the area. www.Akampus.com Search for meditation, relaxation, guided visualization or yoga. Keep sifting through until you find what you like and then write it down so you can revisit. http://www.merit health rankin.[facility].edu/files/webfm-uploads/documents/outreach/im/module_medi tation_patient.pdf Handout on types of meditation/CDs: Breathing: the Master Busby to Self-Healing (Chad Ponce) Relieve Anxiety (Jose Mckoy), also Deep Sleep (Leelee) For Breath work consider: http://doasone.com/Default.aspx Botanicals/Supplements Dark chocolate (70% cocoa content) in place of other sweets Consider coenzyme Q10 100-400 mg a day Consider hawthorn, an herb which promotes overall cardiovascular health see hypertension handout documented in this encounter Progress Notes * Kam Huggins DO - 05/22/2020 9:30 AM EDT Pediatric Nephrology/Integrative Medicine Progress Note Aureliano Mancilla is an 14 y.o. 6 m.o. male with elevated BP who we are seeing for integrative techniques regarding the above. Referred by Malcolm Yi MD HISTORY OF PRESENT ILLNESS He has been doing well. No symptomatic changes. He has increased his fish oil and added co-Q10. Hisblood pressure at the primary care doc's office was normal. He continues to play sports and is anticipating upcoming lacrosse and soccer. We will plan to repeat his cholesterol level is a fasting labbetween now and the next visit. Denies any other neurologic, rheumatologic, GI, pulmonary, [...] ??? Elevated LDL cholesterol level E78.00 Family History Family History Problem Relation Age of Onset ??? Heart Disease Maternal Aunt ??? Sjogren's Syndrome Maternal Aunt ??? Hypertension Maternal Grandmother No current outpatient medications on file prior to visit. No current facility-administered medications on file prior to visit. The above Medications and Supplements Are As per Report from the Family and the Patient. Allergies Allergen Reactions ??? Pollen Extracts PHYSICAL EXAM Constitutional: BP 132/68 Pulse 68 Ht 175.3 cm (5' 9) Wt 73.7 kg (162 lb 6.4 oz) BMI 23.98kg/m?? General Appearance: alert, well appearing and in [...] deficit Skin: normal ASSESSMENT Aureliano is a 14 y.o. 6 m.o. male with elevated BP He has been [...] earlier were normal. He has been doing well. No symptomatic changes. He has increased his fish oil and added co-Q10. Hisblood pressure at the primary care doc's office was normal. He continues to play sports and is anticipating upcoming lacrosse and soccer. We will plan to repeat his cholesterol level is a fasting labbetween now and the next visit. When looking at high blood pressure, the [...] would be thyroid issues, adrenal issues and STOPE MINER disease- all of which typically have more [...] conventional medicine, whole systems such as traditional Prydeinig medicine, Ayurvedic medicine, Western medicine and homeopathy, nutrition,exercise, supplements, botanical medicine, mind body therapies, energy medicine, manual manipulation, and spirituality. I think there are a number of things that we can do for Aureliano to help as indicated below. PLAN I recommend the following plan for Aureliano: Patient Instructions Aureliano's Plan: Will see back in 6 months Continue current therapies Will put in order for lipids. Call prior to going so we can send in th orders Prior recs The anti-inflammatory diet I recommend increasing fruits and vegetables up to at least 5 servings per day, use olive oil or canola oil only, increase grains and keep noodles al dente. Smoothies are agreat way to increase your fruit intake. You could add ground flax seed to it to add the Loveland 3???s. We can discuss the elimination diet [...] or about 1 tsp of the oil. KidBurke from [place], 1 tsp a day, from [employer] or [employer], Coromedwight Loveland-3 (350 mg of EPA and 230 mg of DHA per packet) are ones I commonly used in children. Also consider Barleans flavored omega 3???s or Mont Ida Naturals Juan M chewables. If you choose [...] biofeedback instead, I recommend the system at [employer], Kik or we can work with you here [...] http://www.mindfulnesstapes.com/ Dr Hernandez Miller's mindfulness meditation tapes http://www.ScanScout.com/pmr.htm Guide to progressive muscle relaxation http://www.Certify.Bestowed/health/yoga/ZX74837 5 Yoga poses for stress management http://www.taichinetwork.org/ Connecting students with teachers in the area. www.Akampus.com Search for meditation, relaxation, guided visualization or yoga. Keep sifting through until you find what you like and then write it down so you can revisit. http://www.fammed.[facility].edu/files/web-uploads/documents/outreach/im/module_medi tation_patient.pdf Handout on types of meditation/CDs: Breathing: the Master Busby to Self-Healing (Chad Ponce) Relieve Anxiety (Jose Mckoy), also Deep Sleep (Leelee) For Breath work consider: http://doatOnePlace.com.Bestowed/Default.aspx Botanicals/Supplements Dark chocolate (70% cocoa content) in place of other sweets Consider coenzyme Q10 100-400 mg a day Consider hawthorn, an herb which promotes overall cardiovascular health see hypertension handout I had an extensive visit (30 minutes) with Aureliano and his family. I outlined the above issues. 25 minutes of the time was spent counseling regarding the above. They appear to understand and agree withthe plan. I asked them to come back in 6 months. Kam Huggins DO CC:Malcolm Yi MD documented in this encounter Plan of Treatment Upcoming Encounters Date Type Department Care Team (Late st Contact Info) Description 10/04/2023 9:30 AM EDT Appointment [place] [address] Luisana Walsh MD [facility] PEDI[place] [address] 10/04/2023 10:30 AM EDT Scheduled View Only [place] [address] 10/04/2023 11:00 AM EDT Office Visit [place] [phone] Luisana Walsh MD [facility] PEDI[place] [address] 10/04/2023 11:30 AM EDT Office Visit [place] [phone] Kam Huggins, DO [address] [facility] [place] [address] documented as of this encounter Visit Diagnoses Diagnosis Hypertension, unspecified type documented in this encounter Care Teams Induction Heating Equipment Setter Relationship Specialty Start Date End Date Malcolm Yi MD [address] [facility] [place] [address] PCP - General Pediatrics 12/22/18 06/29/21 documented as of this encounter
--- OUTSIDE RECORDS SUMMARY | 2023-09-15 15:36 | XMS_ITS | Encounter Summary ---
[place] [address] Care Team Providers Care Fagot Heater Name Role Phone Malcolm Yi MD Primary Care Provider [phone] Reason for Visit * Reason Comments Congenital Heart Defect Encounter Details Date Type Department Care Team (Late st Contact Info) Description 05/11/2021 11:00 AM EDT Office Visit [place] [address] Luisana Walsh MD [facility] [place] [address] Elevated blood pressure reading without diagnosis of hypertension; Hypoplasia of aortic arch; Elevated LDL cholesterol level Social History Tobacco Use Types Packs/Day Years Used Date Smoking Tobacco: Never Smokeless Tobacco: Never Sex and Gender Information Value Date Recorded Sex Assigned at Not on file Gender Identity Not on file Sexual Orientation Not on file documented as of this encounter Last Filed Vital Signs Vital Sign Reading Time Taken Comments Blood Pressure 138/87 05/11/2021 9:48 AM EDT Pulse 50 05/11/2021 9:48 AM EDT Temperature - - Respiratory Rate - - Oxygen Saturation 100% 05/11/2021 9:48 AM EDT Inhaled Oxygen Concentration - - Weight 73.8 kg (162 lb 12.8 oz) 05/11/2021 9:48 AM EDT Height 175.3 cm (5' 9) 05/11/2021 9:48 AM EDT Body Mass Index 24.04 05/11/2021 9:48 AM EDT Body Mass Index Percentile 77.34% 05/11/2021 9:4 8 AM EDT Growth Chart: CDC (Boys, 2-2 0 Years) documented in this encounter Progress Notes * Luisana Walsh MD - 05/11/2021 11:00 AM EDT Pediatric Cardiology Outpatient Consultation Note Name: Aureliano Mancilla : 2005 Age: 15 y.o. Location: [facility] Referring Provider: Malcolm Yi MD Reason for Consult/CC: Hyperlipidemia, hypertension, aortic arch hypoplasia Dear Dr. Malcolm Yi MD, It was a pleasure evaluating Aureliano Mancilla today in the pediatric cardiology clinic, accompaniedby his father. Aureliano Mancilla is a 15 y.o. male, who presents for follow up of elevated blood pressure, hyperlipidemia, and hypoplasia of the aortic arch. I last saw Aureliano 2 years ago. Since that time he has been doing very well. He plays multiple sportsand has had no issues and no symptoms, including shortness of breath, chest pain, palpitations, dizziness, or syncope. He continues to eat a healthy diet, and his continue to keep red meat out of hisdiet completely. Past medical history: Patient Active Problem List Diagnosis Code ??? Hypertension I10 ??? Elevated LDL cholesterol level E78.00 Past surgical history: No past surgical history on file. Family history: There is no family history of congenital heart disease, arrhythmias or sudden unexplained . - MGF has HTN - MGM has HTN and bicuspid aortic valve. - Maternal great aunt had a myocardial infarction at young age. - Maternal aunt with Sjogren's syndrome. Social history: In 11th grade, plays soccer and basketball. Lives at home with his family. He is thinking about going premed in college and pursuing a career in medicine. Review of symptoms: Complete review of symptoms was completed including constitutional/general, head, eyes, ears/nose/throat, respiratory, cardiovascular, lymphatic, hematologic, GI, , neurologic, musculoskeletal, endocrine, and skin systems. The pertinent positives are listed above and other systems are negative on review. Current Outpatient Medications on File Prior to Visit Medication Sig Dispense Refill ??? ubiquinone (coenzyme Q10) 100 mg Capsule Take by mouth. ??? Axton-3 Fatty Acids 100 mg Tablet, Chewable Take by mouth. ??? levocetirizine (XYZAL) 5 mg Tablet Take by mouth. ??? montelukast (Singulair) 5 mg Tablet, Chewable Take by mouth. No current facility-administered medications on file prior to visit. Allergies Allergen Reactions ??? Pollen Extracts ??? Cat Dander Itching Physical Exam: Visit Vitals BP 138/87 (BP Location (NBP): Left arm, Patient Position: Sitting) Pulse (!) 50 Ht 175.3 cm (5' 9) Wt 73.8 kg (162 lb 12.8 oz) SpO2 100% BMI 24.04 kg/m?? Blood pressure was repeated with manual cuff, and was 142/84 (right arm, lying down) General: Alert, cooperative, in no distress, appropriate for age HEENT: Normocephalic, no obvious abnormality, conjunctiva and corneas clear, nares symmetrical, oral mucosa are moist, pink. Chest: No mass on palpation along the costochondral joints Lungs: Clear to auscultation bilaterally, respirations unlabored Heart: Regular rhythm, normal rate for age. Non-displaced PMI. Normal S1 and physiologically split S2; no murmur, clicks, rubs or gallops. 2+ pulses in upper and lower extremities. Capillary refill <2 seconds in distal extremities. No edema Abdomen/GI: On palpation, the abdomen is soft. There is no distension and no hepatomegaly Musculoskeletal: Tone and strength normal and symmetrical with normal ROM Skin: Skin warm, dry, and intact, no rashes, no distal clubbing Neurologic: Alert and oriented, no focal defect noted I have reviewed the following results: 05/11/21 09:12 Chol, Total 202 [1] HDL 45 [2] Chol/HDL Ratio 4.5 Triglycerides 100 [3] LDL Cholesterol 137 [4] Lipid Interpretation See Note [5] Laboratory Evaluation, 06/14/19: Total cholesterol: 234 Triglyceride: 104 HDL: 47 LDL 167 ECG (12/20/2018) reviewed by me on 12/28/18:?? Normal sinus rhythm with sinus arrhythmia. Normal axes and intervals. LVH by voltage in V6 and V1. Ventricular rate 64 bpm R-wave axis 38 KS interval 140 msec QRS duration 112 msec QTc 406 msec Ambulatory Blood Pressure Monitor Hookup date & time: 01/01/19 5:56 AM (Recording time: 24 hours) OVERALL: Systolic: 125 mmHg (range 94-142), Dipping 7.2% Diastolic: 65 mmHg (range 43-85), Dipping 18% MAP: 84 mmHg (range 58-98), Dipping 12.8% % time above systolic limits: 4.3% % time above diastolic limits: 9.2% WAKE PERIODS: Systolic: 126 mmHg (range 108-141) Diastolic: 67 mmHg (range 50-85) MAP: 86 mmHg (range 74-98) % time above systolic limits: 0% % time above diastolic limits: 6.6% SLEEP PERIOD: Systolic: 117 mmHg (range 94-142) Diastolic: 55 mmHg (range 43-76) MAP: 75 mmHg (range 58-97) % time above systolic limits: 26.6% % time above diastolic limits: 26.6% Complete congenital 2D echocardiogram with color flow and Doppler analysis 05/11/21: Focused follow up study for hypertension and re-evaluation of aortic arch narrowing. No significantchange from prior study. There is mild narrowing of the distal transverse aortic arch and isthmus (z- score -2.6) There is turbulent flow in the distal aortic arch, but no significant gradient, peak 14 mm Hg. The left ventricle has normal chamber size, wall thickness and systolic function. No left ventricular hypertrophy. There is a left ventricular false tendon visualized (normal variant). The calculated left ventricular ejection fraction is 57 %, by Encinas biplane MOD. The estimated right ventricular systolic pressure by the tricuspid regurgitation is 26 mm Hg plus right atrial pressure (RAP). The right ventricle has normal chamber size, wall thickness and systolic function. Review of external data: Referral documentation including prior cardiology notes, prior echocardiogram, new lab work, and prior cardiac testing were reviewed for this visit. Assessment: Aureliano Mancilla is a 15 y.o. male who presents for re-evaluation of hyperlipidemia and hypertension. 1. High blood pressure: On echocardiogram, he continues to have evidence of mild distal aortic arch hypoplasia and coarctation, but with a very mild gradient of 14 mmHg across this narrowing. As mentioned at his first appointment, this may be contributing to higher than normal blood pressures, but he has never had a cuff gradient from uppers to lowers and is very mild. His ambulatory blood pressure monitor demonstrated very mild elevation in overall blood pressure, and therefore a large component of his elevated pressures in the past were likely white coat hypertension. However, his blood pressure remained elevated in the office today, and therefore repeat ambulatory blood pressure monitor is indicated 2. Hyperlipidemia: On repeat laboratory evaluation, he had significant improvement in his cholesterol levels compared to our initial visit. His LDL level is now in the 130s, compared to the 160s 2 years ago. This is largely due to the beneficial changes that Aureliano has made in his diet, and the fact that he has very healthy in terms of his activity level and maintaining a normal weight. With these numbers, he does not require any treatment for hyperlipidemia. We discussed continuing with his current strategies formaintaining a healthy weight and diet, including his exclusion of red meat, focusing on whole grains, and omega-3 fatty acids. Recommendations: - Continue dietary changes as discussed in past - Continue Axton 3 supplement - Continue regular exercise - Repeat ambulatory blood pressure monitor - No cardiac medications at this time - Follow up in 2 years - repeat lipid panel and echo prior to appt. this can be done here in pediatric cardiology, or I am happy to send his information to our adult colleagues. I will leave this up to Aureliano and his family to decide where they would like to be seen in the future. The above assessment and plan were discussed with Aureliano and his father, who expressed understandingand asked appropriate questions. Thank you for your referral. Please contact our team at any time with questions or concerns. Luisana Walsh MD [facility] Pediatric Cardiology documented in this encounter Plan of Treatment Upcoming Encounters Date Type Department Care Team (Late st Contact Info) Description 10/04/2023 9:30 AM EDT Appointment [place] [address] Luisana Walsh MD [facility] [place] [address] 10/04/2023 10:30 AM EDT Scheduled View [place] [address] 10/04/2023 11:00 AM EDT Office Visit [place] [address] Luisana Walsh MD [facility] [place] [address] 10/04/2023 11:30 AM EDT Office Visit [place] [address] Kam Huggins, DO [address] [facility] [place] [address] documented as of this encounter Results * 24 hour blood pressure monitor (11/04/2021) Anatomical Region Laterality Modality Other Narrative 11/04/2021 Hookup date & time: 05/23/21 Recording time: 24 hours Number of readings: ??40 of 40 (100% successful ); 29 day, 11 night; FINDINGS: OVERALL: Systolic: 145 mmHg (range 111-176), Dipping 5% Diastolic: 72 mmHg (range 48-93), Dipping 2.5% MAP: 97 mmHg (range 69-123), Dipping 5% % time above systolic limits: 90% % time above diastolic limits: 17.5% WAKE PERIODS: Systolic: 147 mmHg (range 120-176) Diastolic: 73 mmHg (range 57-90) MAP: 98 mmHg (range 79-123) % time above systolic limits: 90% % time above diastolic limits: 3.5% SLEEP PERIOD: Systolic: 140 mmHg (range 111-167) Diastolic: 71 mmHg (range 48-93) MAP: 93 mmHg (range 69-115) % time above systolic limits: 90.1% % time above diastolic limits: 54.5% COMMENTS: none IMPRESSION: Ambulatory blood pressure monitoring is consistent with a diagnosis of Stage 2 Hypertension, based on the updated 2017 AAP definition of abnormal blood pressure (listed below). The majority (90%) of his wake and sleep readings were above the systolic limits. He did not have appropriate dipping with sleep (<10%). 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
--- OUTSIDE RECORDS SUMMARY | 2023-09-15 15:36 | XMS_ITS | Encounter Summary ---
Author Organization [facility] [place] [address] Care Team Providers Care Special Client Bus Driver Name Role Phone Unknown Primary Care Provider Unavailabl e Encounter Details Date Type Department Care Team (Latest Contact Info) Description 11/04/2021 Unscheduled Encounter [place] [id number] Luisana Walsh MD [facility] [place] [address] Elevated blood pressure reading without diagnosis of hypertension Social History Tobacco Use Types Packs/Day Years Used Date Smoking Tobacco: Never Smokeless Tobacco: Never Sex and Gender Information Value Date Recorded Sex Assigned at Not on file Gender Identity Not on file Sexual Orientation Not on file documented as of this encounter Progress Notes * Luisana Walsh MD - 11/04/2021 2:38 PM EDT Hookup date & time: 05/23/21 Recording time: 24 hours Number of readings: 40 of 40 (100% successful ); 29 day, [...] limits. He did not have appropriate dipping withsleep (<10%). AAP Clinical Practice Guideline for Screening and Management of High Blood Pressure in Children and Adolescents (Pediatrics, October 2016): Children Aged 1 to <13 years: Normal BP: <90th percentile Elevated BP: ?90th percentile to <95th percentile or 120/80 mm?Hg to <95th percentile (whichever is lower) Stage 1 HTN: ?95th percentile to <95th percentile + 12 mmHg, or 130/80 to 139/89 mm?Hg (whichever is lower) Stage 2 HTN: ?95th percentile + 12 mm?Hg, or ?140/90 mm?Hg (whichever is lower) Children Aged ? 13 years: Normal BP: <120/<80 mm?Hg Elevated BP: 120/<80 to 129/<80 mm?Hg Stage 1 HTN: 130/80 to 139/89 mm?Hg Stage 2 HTN: ?140/90 mm?Hg Luisana Walsh MD MPH [facility] Pediatric Cardiology documented in this encounter Plan of Treatment Upcoming Encounters Date Type Department Care Team (Late st Contact Info) Description 10/04/2023 9:30 AM EDT Appointment [place] [address] Luisana Walsh MD [facility] [place] [address] 10/04/2023 10:30 AM EDT Scheduled View [place] [address] 10/04/2023 11:00 AM EDT Office Visit [place] [address] Luisana Walsh MD [facility] [place] [address] 10/04/2023 11:30 AM EDT Office Visit [place] [address] Kam Huggins, DO [address] [facility] [place] [address] documented as of this encounter Procedures Procedure Name Priority Date/Time Associated Diagnosis Comments 24 HR BLOOD PRESSURE MONITOR Routine 11/04/2021 Elevated blood pressure reading without diagnosis of hypertension documented in this encounter Results * 24 hour blood [...] sleep (<10%). Luisana Walsh MD [facility] Randall HALL documented in this encounter Visit Diagnoses Diagnosis Elevated blood pressure reading without diagnosis of hypertension documented in this encounter Care Teams Special Client Bus Driver Relationship Specialty Start Date End Date Unknown None PCP - General 06/30/21 10/02/22 documented as of this encounter
--- OUTSIDE RECORDS SUMMARY | 2023-09-15 15:36 | XMS_ITS | Encounter Summary ---
[place] [address] Care Team Providers Care Hydroelectric Mechanic Name Role Phone Unknown Primary Care Provider Unavailabl e Encounter Details Date Type Department Care Team (Latest Contact Info) Description 12/17/2021 Travel Social History Tobacco Use Types Packs/Day [...] 9:30 AM EDT Appointment [place] [address] Luisana Walsh MD [facility] [place]EDIATR[place] [address] 10/04/2023 10:30 AM EDT Scheduled View [place] [address] 10/04/2023 11:00 AM EDT Office [place] [address] Luisana Walsh MD [facility] [place] [address] 10/04/2023 11:30 AM EDT Office [place] [address] Kam Huggins, DO [address] [facility] [place] [address] documented as of this encounter Visit Diagnoses Not on filedocumented in this encounter Care Teams Hydroelectric Mechanic Relationship Specialty Start Date End Date Unknown None PCP - General 06/30/21 10/02/22 documented as of this encounter
--- OUTSIDE RECORDS SUMMARY | 2023-09-15 15:36 | XMS_ITS | Encounter Summary ---
[place] [address] Care Team Providers Care Mica Laminating Machine Feeder Name Role Phone Unknown Primary Care Provider Unavailabl e Encounter Details Date Type Department Care Team (Late st Contact Info) Description 12/17/2021 11:00 AM EDT Office Visit [place] [phone] Kam Huggins, DO [address] [facility] [place] [address] Hypertension, unspecified type Social History Tobacco Use Types Packs/Day Years Used Date Smoking Tobacco: Never Smokeless Tobacco: Never Sex and Gender Information Value Date Recorded Sex Assigned at Not on file Gender Identity Not on file Sexual Orientation Not on file documented as of this encounter Last Filed Vital Signs Vital Sign Reading Time Taken Comments Blood Pressure 156/65 12/17/2021 11:09 AM EDT Pulse 53 12/17/2021 11:09 AM EDT Temperature - - Respiratory Rate - - Oxygen Saturation - - Inhaled Oxygen Concentration - - Weight 77.1 kg (170 lb) 12/17/2021 11:01 AM EDT Height 176.5 cm (5' 9.5) 12/17/2021 11:01 AM ED T Body Mass Index 24.74 12/17/2021 11:01 AM EDT Body Mass Index Percentile 79.39% 12/17/2021 11: 01 AM EDT Growth Chart: CDC (Boys, 2-2 0 Years) documented in this encounter Patient Instructions * Patient Instructions* BhavnaKam, DO - 12/17/2021 11:00 AM EDT Aureliano's Plan: Will see back in 4-6 months Take BP at home or at school and let us know the results Increase current therapies: CoQ10 to 200-400 mg a day, Four States 3 fats to 2000 mg a day If BP not improved will start lisinopril 5 mg a day. I want to make this decision in plenty of timeto see how things go before you are headed off to college Prior recs The anti-inflammatory diet I recommend increasing fruits and vegetables up to at least 5 servings per day, use olive oil or canola oil only, increase grains and keep noodles al dente. Smoothies are agreat way to increase your fruit intake. You could add ground flax seed to it to add the Four States 3???s. We can discuss the elimination diet [...] 1 tsp of the oil. KiddOmega from [employer], 1 tsp a day, from Betify or Glad to Have You, Capitol Bells Four States-3 (350 mg of EPA and 230 mg of DHA per packet) are ones I commonly used in children. Also consider Barleans flavored omega 3???s or AstorTappxs Juan M chewables. If you choose to [...] biofeedback instead, I recommend the system at [employer], [employer] or we can work with you here [...] daily training. Relaxation online and CD resources http://www.Seamless.Backchat/ Dr Hernandez Miller's mindfulness meditation tapes http://www.IceBreaker.Backchat/pmr.htm Guide to progressive muscle relaxation http://www.Plum/health/yoga/WH41202 5 Yoga poses for stress management http://www.CoFluent Design.org/ Connecting students with teachers in the area. www.youSensory Networksube.com Search for meditation, relaxation, guided visualization or yoga. Keep sifting through until you find what you like and then write it down so you can revisit. http://www.[facility] [place].[facility].edu/files/webfm-uploads/documents/outreach/im/module_medi tation_patient.pdf Handout on types of [...] Progress Notes * Kam Huggins DO - 12/17/2021 11:00 AM EDT Pediatric Nephrology/Integrative Medicine Progress Note [...] have been missed. HISTORY OF PRESENT ILLNESS Overall has been doing well since his last visit to the program. He is in his senior high school. He did not play soccer this year but continues to be active and working out. He has been taking some co-Q10 but a relatively low dose and also a relatively lower dose of the omega-3 fats. He had a 24-hour blood pressure monitor which shows that his blood pressure continues to be on the high side, particularly the systolic blood pressures. His blood pressures today still show elevated systolic bloodpressures with more normal diastolic blood pressure. His peripheral pulses are normal and there does not appear to be a significant difference in the 4 extremities. We talked quite a bit today about how to approach this. He is at a point where we would more strongly consider using medications. He would like to try and push forward with lifestyle and supplement changes. I told him that I want to make sure we have a good plan in place before he heads off to college. I want to make sure we give ourselves enough opportunity to get the blood pressure under control and to make sure there is no sideeffects of the medication. Therefore, we will push up the omega-3 fats and the co-Q10, continue with making lifestyle modifications, and if within the next month or so there has not been improvement we will look at starting lisinopril. Denies any other neurologic, rheumatologic, GI, pulmonary, [...] 100 mg Capsule Take by mouth. ??? Four States-3 Fatty Acids 100 mg Tablet, Chewable Take [...] Cat Dander Itching PHYSICAL EXAM Constitutional: BP 156/65 (BP Location (NBP): Left leg, Patient Position: Lying, BP Cuff Sizes: Adult (25-34 cm)) Pulse (!) 53 Ht 176.5 cm (5' 9.5) Wt 77.1 kg (170 lb) BMI 24.74 kg/m?? General Appearance: alert, well appearing and in [...] studies that were done earlier were normal. Overall has been doing well since his last visit to the program. He is in his senior high school. He did not play soccer this year but continues to be active and working out. He has been taking some co-Q10 but a relatively low dose and also a relatively lower dose of the omega-3 fats. He had a 24-hour blood pressure monitor which shows that his blood pressure continues to be on the high side, particularly the systolic blood pressures. His blood pressures today still show elevated systolic bloodpressures with more normal diastolic blood pressure. His peripheral pulses are normal and there does not appear to be a significant difference in the 4 extremities. We talked quite a bit today about how to approach this. He is at a point where we would more strongly consider using medications. He would like to try and push forward with lifestyle and supplement changes. I told him that I want to make sure we have a good plan in place before he heads off to college. I want to make sure we give ourselves enough opportunity to get the blood pressure under control and to make sure there is no sideeffects of the medication. Therefore, we will push up the omega-3 fats and the co-Q10, continue with making lifestyle modifications, and if within the next month or so there has not been improvement we will look at starting lisinopril. When looking at high blood pressure, the [...] would be thyroid issues, adrenal issues and TILE MASON disease- all of which typically have more [...] conventional medicine, whole systems such as traditional Cam[place]onian medicine, Ayurvedic medicine, Western medicine and homeopathy, nutrition,exercise, supplements, botanical medicine, mind body therapies, energy medicine, manual manipulation, and spirituality. I think there are a number of things that we can do for Aureliano to help as indicated below. PLAN I recommend the following plan for Aureliano: Patient Instructions Aureliano's Plan: Will see back in 4-6 months Take BP at home or at school and let us know the results Increase current therapies: CoQ10 to 200-400 mg a day, Four States 3 fats to 2000 mg a day If BP not improved will start lisinopril 5 mg a day. I want to make this decision in plenty of timeto see how things go before you are headed off to college Prior recs The anti-inflammatory diet I recommend increasing fruits and vegetables up to at least 5 servings per day, use olive oil or canola oil only, increase grains and keep noodles al dente. Smoothies are agreat way to increase your fruit intake. You could add ground flax seed to it to add the Four States 3???s. We can discuss the elimination diet [...] 1 tsp of the oil. KiddOmega from [employer], 1 tsp a day, from Betify or Glad to Have You, Capitol Bells Four States-3 (350 mg of EPA and 230 mg of DHA per packet) are ones I commonly used in children. Also consider Bar[place] flavored omega 3???s or Astor Naturals Juan M chewables. If you choose [...] biofeedback instead, I recommend the system at [employer], [employer] or we can work with you here [...] http://www.mindfulnesstapes.com/ Dr Hernandez Miller's mindfulness meditation tapes http://www.IceBreaker.Backchat/pmr.htm Guide to progressive muscle relaxation http://www.Qoopl.Backchat/health/yoga/IB48285 5 Yoga poses for stress management http://www.[employer]Fluent [employer].org/ Connecting students with teachers in the area. www.Ahonya.com Search for meditation, relaxation, guided visualization or yoga. Keep sifting through until you find what you like and then write it down so you can revisit. http://www.[facility] [place].[facility].edu/files/webfm-uploads/documents/outreach/im/module_medi tation_patient.pdf Handout on types of meditation/CDs: Breathing: the Master Busby to Self-Healing (Chad Ponce) Relieve Anxiety (Jose Mckoy), also Deep Sleep (Leelee) For Breath work consider: http://doMicksGarage.Backchat/Default.aspx Botanicals/Supplements Dark chocolate (70% cocoa content) in place of other sweets Consider coenzyme Q10 100-400 mg a day Consider hawthorn, an herb which promotes overall cardiovascular health See handout I had an extensive visit (30 minutes) with Aureliano and his family. I outlined the above issues. 25 minutes of the time was spent counseling regarding the above. They appear to understand and agree withthe plan. I asked them to come back in 4-6 months. Kam Huggins DO CC:Unknown documented in this encounter Plan of Treatment Upcoming Encounters Date Type Department Care Team (Late st Contact Info) Description 10/04/2023 9:30 AM EDT Appointment [place] [address] Luisana Walsh MD [facility] [place] [address] 10/04/2023 10:30 AM EDT Scheduled View [place] [address] 10/04/2023 11:00 AM EDT Office [place] [phone] Luisana Walsh MD [facility] [place] [address] 10/04/2023 11:30 AM EDT Office Visit [place] [phone] Kam Huggins, DO [address] [facility] [place] [address] documented as of this encounter Visit Diagnoses Diagnosis Hypertension, unspecified type documented in this encounter Care Teams Mica Laminating Machine Feeder Relationship Specialty Start Date End Date Unknown None PCP - General 06/30/21 10/02/22 documented as of this encounter
--- OUTSIDE RECORDS SUMMARY | 2023-09-15 15:36 | XMS_ITS | Encounter Summary ---
Author Organization [facility] [place] [address] Care Team Providers Care Substitute Nurse Name Role Phone Malcolm Yi MD Primary Care Provider [phone] Encounter Details Date Type Department Care Team (Late st Contact Info) Description 12/31/2020 Telephone [place] [address] Anaid Kamara Social History Tobacco Use Types Packs/Day Years Used Date Smoking Tobacco: Never Smokeless Tobacco: Never Sex and Gender Information Value Date Recorded Sex Assigned at Not on file Gender Identity Not on file Sexual Orientation Not on file documented as of this encounter Miscellaneous Notes * Telephone Encounter - Anaid Kamara - 12/31/2020 11:47 AM EST Spoke to Aureliano who stated that parents were at work and would not be home until around 7, I let himknow that I would send a letter home and his parent could call to schedule at their convenience documented in this encounter Plan of Treatment Upcoming Encounters Date Type Department Care Team (Late st Contact Info) Description 10/04/2023 9:30 AM EDT Appointment [place] [phone] Luisana Walsh MD [facility] [place] [address] 10/04/2023 10:30 AM EDT Scheduled View [place] [address] 10/04/2023 11:00 AM EDT Office Visit [place] [address] Luisana Walsh MD [facility] [place] [address] 10/04/2023 11:30 AM EDT Office Visit [place] [address] Kam Huggins, DO [address] [facility] [place] [address] documented as of this encounter Visit Diagnoses Not on filedocumented in this encounter Care Teams Substitute Nurse Relationship Specialty Start Date End Date Malcolm Yi MD [address] [place] [address] PCP - General Pediatrics 12/22/18 06/29/21 documented as of this encounter
--- OUTSIDE RECORDS SUMMARY | 2023-09-15 15:36 | XMS_ITS | Encounter Summary ---
[place] [address] Care Team Providers Care Eyeglass Lens Cutter Name Role Phone Malcolm Yi MD Primary Care Provider [phone] Reason for Referral * Diagnostic Test (Routine) - Closed Specialty Diagnoses / Procedures Referred By Contac t Referred To Contact Cardiology Diagnoses Hypertension, unspecified type Procedures Echocardiogram Pedi Echocardiogram Transthoracic([facility]) Luisana Johnson MD [facility] [address] [place] [address] [facility] [place] [address] Referral ID Status Reason Start Date Expiration Date V isits Requested Visits Authorized [id number] Closed Specialty Service Requested 06/28/2019 06/27/2020 1 1 * Consultation (Routine) - Closed Specialty Diagnoses / Procedures Referred By Contac t Referred To Contact Pediatric Nephrology Diagnoses Hypertension, unspecified type Luisana Johnson MD [facility] [address] [place] [address] [facility] [place] [address] [place] [address] Referral ID Status Reason Start Date Expiration Date V isits Requested Visits Authorized [id number] Closed Consult, Test & Treat 06/28/2019 06/27/2020 1 1 * Diagnostic Test (Routine) - Closed Specialty Diagnoses / Procedures Referred By Contac t Referred To Contact Cardiology Diagnoses Hypertension, unspecified type Procedures Echocardiogram Transthoracic([facility]) Luisana Johnson MD [facility] [place] [address] [facility] [place] [address] Referral ID Status Reason Start Date Expiration Date V isits Requested Visits Authorized [id number] Closed Specialty Service Requested 06/12/2019 06/11/2020 1 1 Encounter Details Date Type Department Care Team (Latest Contact Info) Description 06/28/2019 11:00 AM EDT Office Visit [place] [address] [facility] [place] [address] Hypertension, unspecified type; Hyperlipidemia, unspecified hyperlipidemia type; Hypoplasia of aortic arch Social History Tobacco Use Types Packs/Day Years Used Date Smoking Tobacco: Never Smokeless Tobacco: Never Sex and Gender Information Value Date Recorded Sex Assigned at Not on file Gender Identity Not on file Sexual Orientation Not on file documented as of this encounter Last Filed Vital Signs Vital Sign Reading Time Taken Comments Blood Pressure 132/83 06/28/2019 10:18 AM EDT Pulse 96 06/28/2019 10:18 AM EDT Temperature - - Respiratory Rate - - Oxygen Saturation 99% 06/28/2019 10: 18 AM EDT Inhaled Oxygen Concentration - - Weight 70.4 kg (155 lb 3.2 oz) 06/28/19 20 10:18 AM EDT Height 174 cm (5' 8.5) 06/28/2019 10:1 8 AM EDT Body Mass Index 23.25 06/28/2019 10:18 AM EDT Body Mass Index Percentile 81.37% 06/27 10:18 AM EDT Growth Chart: CDC (Boys, 2-2 0 Years) documented in this encounter Progress Notes * Luisana Johnson MD - 06/28/2019 11:00 AM EDT Pediatric Cardiology Outpatient Consultation Note Name: Aureliano Mccarty : 2005 Age: 13 y.o. Location: [facility] Referring Provider: Malcolm Yi MD Reason for Consult/CC: Follow up, hyperlipidemia, hypertension Dear Dr. Malcolm Yi MD, It was a pleasure evaluating Aureliano Mccarty today in the pediatric cardiology clinic, accompaniedby his mother. Aureliano Mccarty is a 13 y.o. male, who presents for follow up of hypertension and hyperlipidemia. Aureliano has been doing very well since his last visit, making lifestyle modifications as previously discussed given his hyperlipidemia. He has been staying active, running up to 4 times per week and playing basketball and soccer. He has cut out all red meat from diet and having mostly chicken and pork with varied vegetables and starches. He only eats whole grain starches, with occasional white tortillas. He is avoiding all full-fat dairy products and has only skim milk and occasional low fat cheese. He no longer drinks sugary beverages, and mainly hydrates with flavored water and milk. He denies any symptoms, including chest pain, shortness of breath, palpitations or syncopal events. Past medical history: Patient Active Problem List Diagnosis Code ??? Hypertension I10 ??? Elevated LDL cholesterol level E78.00 Past surgical history: No past surgical history on file. Family history: There is no family history of congenital heart disease, arrhythmias or sudden unexplained . MGF has HTN, MGM has HTN and bicuspid aortic valve. Maternal great aunt had a myocardial infarction at young age. Maternal aunt with Sjogren's syndrome. Social history: In 9th grade, plays soccer and basketball nearly year round. Review of symptoms: Complete review of symptoms was completed including constitutional/general, head, eyes, ears/nose/throat, respiratory, cardiovascular, lymphatic, hematologic, GI, , neurologic, musculoskeletal, endocrine, and skin systems. The pertinent positives are listed above and other systems are negative on review. No current outpatient medications on file prior to visit. No current facility-administered medications on file prior to visit. Allergies Allergen Reactions ??? Pollen Extracts Physical Exam: Visit Vitals BP 132/83 Pulse 96 Ht 174 cm (5' 8.5) Wt 70.4 kg (155 lb 3.2 oz) SpO2 99% BMI 23.25 kg/m?? General: Alert, cooperative, in no distress, appropriate [...] Alert and oriented, no focal defect noted Laboratory Evaluation: Total cholesterol: 234 Triglyceride: 104 HDL: 47 LDL 167 ECG (12/20/2018) reviewed by me on 12/28/18:?? Normal sinus rhythm with sinus arrhythmia. Normal axes and intervals. LVH by voltage in V6 and V1. Ventricular rate 64 bpm R-wave axis 38 NC interval 140 msec QRS duration 112 msec [...] echocardiogram with color flow and Doppler analysis 06/28/19: 1. Focused follow up study for hypertension and re-evaluation of aortic arch narrowing. No significant change from prior study. 2. There is mild narrowing of the distal transverse aortic arch (z-score -2.3) and isthmus (z-score-2.9) 3. There is turbulent flow in the distal aortic arch, consistent with mild coarctation of the aortawith a peak gradient of 14 mm Hg (uncorrected). 4. The left ventricle has normal chamber size, wall thickness and systolic function. 5. No left ventricular hypertrophy. LV mass is calculated to be 220 grams, or 49 grams indexed to height2.7. 6. The calculated left ventricular ejection fraction is 68 %, by Encinas biplane MOD. 7. There is a left ventricular false tendon (LV band) visualized (normal variant). 8. The estimated right ventricular systolic pressure by the tricuspid regurgitation is 24 mm Hg plus right atrial pressure (RAP). 9. The right ventricle has normal chamber size, wall thickness and systolic function. 10. See remainder of report for additional findings. Review of external data: Referral documentation including prior cardiology notes, prior echocardiogram, new lab work, and prior cardiac testing were reviewed for this visit. Assessment: Aureliano Mccarty is a 13 y.o. male who presents for re-evaluation of [...] the past were likely white coat hypertension. His blood pressure was also improved today in the office (132/83) compared to his prior visit. He does require nephrology work-up for the hyperte nsion to rule out any renovascular disease. A referral will be placed for this visit. 2. Hyperlipidemia: On repeat laboratory evaluation, he continues to have elevated total cholesterol and LDL, which is unchanged from last year. Based on family history and his medical history, he does not have multiplesignificant risk factors, and therefore requires no medication at this time. His hypertension is a risk factor but remains mild at this time. He has one distant family member with early coronary artery disease. He has made significant improvements to his already healthy lifestyle, and his family remains committed to continuing this effort. We discussed continuing his current efforts to decrease red meat, dairy, sugar, and processed foods, while increasing intake of whole grains and fiber. We also discussed the addition of [place]-3 fatty acids by introducing more fish into the diet (especially large cold-water fish, like [place]), and adding [place]-3 supplements. ?? Recommendations: - Continue dietary changes: Eliminate all sugary bevrages, baked goods, and process foods/snacks, substitute high fat meats and cheese for lower fat options (as described in nutrition guide). Increase whole grains and high fiber foods. - Start [place]-3 daily supplement. Recommended TwoTen Naturals as a brand that has lower toxic components, like Mercury. Also add fish ([place], swordfish, tuna are preferable to white fish like herminia, halibut, and cod) - Continue regular exercise, with goal of >60 minutes/day, at least 5 days/week - Referral to Nephrology for evaluation of hypertension - Repeat ambulatory blood pressure monitor, per nephrology recommendations - Referral to Nutritional services for further dietary guidance - No cardiac medications at this time - Follow up in 1 year for repeat echocardiogram to re-evaluate LV mass, with fasting lipid prior tothe appointment. The above assessment and plan were discussed with Aureliano's mother, who expressed understanding and asked appropriate questions. Thank you for your referral. Please contact our team at any time with questions or concerns. Luisana Johnson MD [facility] Pediatric Cardiology documented in this encounter Plan of Treatment Upcoming Encounters Date Type Department Care Team (Late st Contact Info) Description 10/04/2023 9:30 AM EDT Appointment [place] [phone] [facility] [address] [place] [address] 10/04/2023 10:30 AM EDT Scheduled View [place] [phone] 10/04/2023 11:00 AM EDT Office [place] [address] [facility] [address] [place] [address] 10/04/2023 11:30 AM EDT Office Visit [place] [address] Kam Huggins, DO [address] [facility] [place] [address] Scheduled Referrals Name Type Priority Associated Diagnoses Orde r Schedule Referral to Pediatric Nephrology Outpatient Referral Routine Hypertension, unspecified type Ordered: 06/28/2019 documented as of this encounter Results * CONGENITAL ECHO COMPLETE (05/11/2021 12:19 PM EDT) Anatomical Region Laterality Modality Other 05/11/2021 10:1 1 AM EDT Narrative 05/13/2021 3:53 PM EDT ? Version: 1 ? Study ID: [id number] + + ? + + : ? : ? : ?: : ? : ? Cardiovascular Laboratory ?: ?: : ? : ? : ?: + + ? + + ? [facility] ? JEAN Garcia ? Pediatric Echocardiogram Report --+ : ??Name: ?? BIBIANA, AURELIANO R ?Study Date: ?? 05/11/2021, 10:11 AM ? BP: ??138 / 87 mmHg ? : : ?Patient Location: ?? 6M ? : : ??: ?? 2005 (MM/DD/YYYY) ? Gender: ?? Male ? Height: ?? 175 cm ? : : ??Age: ??15 Years ? Weight: ?? 74 kg ?: : ??Reason For Study: ?? Coarctation of the aorta ? BSA: ??1.892 m? : : ??Ordering Physician: ?? LUISANA JOHNSON ? : : ??Referring Physician: ??LUISANA JOHNSON ? : : ??Performed By: ?? Mariana Paredes RDCS ? : : ??Exam Location: ?[facility] Pediatric Cardiology. ? : --+ Interpretation Summary Focused follow up study for hypertension and re-evaluation of aortic arch narrowing. No significant change from prior study. There is mild narrowing [...] chamber size, wall thickness and systolic function. MMode/2D Measurements & Calculations ? Ao Isth Diam: 0.96 cm ?Ao root diam(2D): 2.[address] Jx Diam(2D): 2.48 cm ? AoV marcial diam(2D): 2.06 cm ?asc Aorta(2D): 2.46 cm EDV(MOD-sp2): 143.0 ml ?EDV(MOD-sp4): 152.0 ml ESV(MOD-sp2): 54.5 ml ?ESV(MOD-sp4): 74.3 ml ? IVSd(MM): 0.92 cm ?LVIDd(MM): 5.7 cm ? LVIDs(MM): 3.9 cm LVLd ap2: 10.8 cm ? LVLd ap4: 10.0 cm ?LVLs ap2: 8.8 cm ? LVLs ap4: 8.3 cm LVPWd(MM): 0.88 cm Systolic Pressure: 138.0 mmHg Doppler Measurements & Calculations Lat Peak E' Marino: 20.6 cm/sec ? Med Peak E' Marino: 14.0 cm/sec ? MV A max marino: 38.6 cm/sec MV dec time: 0.26 sec ? MV E max marino: 84.5 cm/sec ? TR max P.0 mmHg ?TR max marino: 255.2 cm/sec Other Measurements & Calculations ? EF(MOD-sp2): 61.9 % EF(MOD-sp4): 51.1 % ? FS(MM): 31.5 % ?LV mass(C)d(MM): 199.7 grams MV E/A: 2.19 ? SV(MOD-sp2): 88.5 ml SV(MOD-sp4): 77.7 ml [place] Z-Scores --+ : Measurement Name ? :Measurement Value ? :Z-Score ?:Predicted ? :Normal Range ? : + + -+ : : Ao root diam(2D) ? :2.8 cm ? :-0.18 ?:2.9 ? :2.29 - 3.5 ? : + + -+ : : AoV marcial diam(2D) ?:2.06 cm ? :-0.47 ?:2.16 ?:1.75 - 2.6 ? : + + -+ : : asc Aorta(2D) ?:2.46 cm ? :-0.43 ?:2.6 ? :1.98 - 3.2 ? : + + -+ : : LVIDd(MM) ?:5.7 cm ? :1.56 ? :5.1 ? :4.4 - 5.9 ? : + + -+ : : LVPWd(MM) ?:0.88 cm ? :-0.38 ?:0.93 ?:0.68 - 1.18 ? : + + -+ : : FS(MM) (vs. Age) ? :31.5 % ? :-1.06 ?:35.0 ?:28.8 - 42.5 ? : + + -+ : : LVIDs(MM) ?:3.9 cm ? :1.63 ? :3.3 ? :2.6 - 4.0 ? : + + -+ : : Ao ST Jx Diam(2D) ?:2.48 cm ? :0.06 ? :2.46 ?:1.89 - 3.0 ? : + + -+ : : IVSd(MM) ? :0.92 cm ? :-0.47 ?:0.99 ?:0.69 - 1.29 ? : + + -+ : : LV mass(C)d(MM) ?:199.7 grams ? :0.54 ? :179.2 ? :121.2 - 265.0 ? : + + -+ : : FS(MM) (vs. WS(merid.)(MM)) ?:31.5 % ?: ?? : ?: ?: + + -+ : : FS(MM) (vs. WS(merid.)(MM), Age) ? :31.5 % ?: ?? : ?: ?: : : -+ : : ?: ? :-1.06 ?:0.19 ?:0.13 - 0.24 ? : + + -+ : : Height (metric) ?:175.0 cm ? :-0.11 ?:175.8 ? :161.0 - 189.9 ? : + + -+ : : Weight (metric) (vs. Age, Gender) ?:74.0 kg ? :0.67 ? :65.9 ?:49.7 - 98.3 ? : + + -+ : : Systolic Pressure ?:138.0 mmHg ?:2.5 :107.4 ? :83.8 - 131.0 ?: + + -+ : : Diastolic Pressure ? :87.0 mmHg ? :3.3 :55.5 ?:36.7 - 74.3 ? : + + -+ : : Weight (metric) (vs. BZI_Metric_Height, Gender) ??:74.0 kg ? : ?? : ?: ?: + + -+ : : BSA(Dorothy) ? :1.903 m? :0.63 ? :1.76 ?:1.32 - 2.20 ? : + + -+ : : BMI ?:24.2 kilograms/m? :0.78 ? :21.5 ?:17.4 - 31.2 ? : + + -+ : : Shola rigo Diam ? :0.96 cm ? :-2.6 ? :1.71 ?:1.14 - 2 ? : + + -+ : : ?: ? :-0.12 ?:1.44 ?:0.95 - 1.93 ? : : : -+ : : ?: ? :0.15 ? :2.31 ?:1.64 - 3.0 ? : + + -+ : : ?: ? :-1.43 ?:1.53 ?:1.05 - 2.00 ? : + + -+ : --+ Position Levocardia. Cardiac Segments {S,D,S}. Veins Normal systemic venous drainage. At least one pulmonary vein from each side enters normally into the left atrium. Atria Normal right atrial size. Normal left atrial size. Mitral Valve Normal mitral valve. There is no mitral valve stenosis. There is trace mitral regurgitation. Tricuspid Valve Structurally normal tricuspid valve. There is no tricuspid stenosis. There is trace tricuspid regurgitation. Right ventricular pressure estimate is 26 mmHg exclusive of right atrial pressures. Left Ventricle Normal left ventricle structure and size. Left ventricular systolic function is normal. There is normal left ventricular wall thickness. Left Ventricle false tendon. Right Ventricle Normal right ventricle structure and size. Normal right ventricular systolic function. Interatrial/Interventricular Septum Atrial septum appears intact. Intact ventricular septum. Aortic Valve Normal tricuspid aortic valve. Normal aortic valve velocity. No aortic regurgitation is present. Pulmonic Valve Normal pulmonic valve. No valvar pulmonary stenosis. Trace pulmonic valvular regurgitation. Great Vessels Normal pulmonary artery branches. No patent ductus arteriosus detected. Hypoplastic aortic isthmus. Descending aortic velocity normal. Descending aorta peak gradient measures 14 mm Hg. Coronaries Left coronary artery was not well seen. Right coronary artery was not well seen. Pericardium and Pleura No pericardial effusion. Rhythm Normal sinus rhythm. CPT A complete congenital two-dimensional transthoracic pediatric echocardiogram was performed (2D, M-mode, Doppler and color flow Doppler). Reading Physician ?Luisana Johnson MD ? 05/13/2021, 3: 53 PM Procedure Note Luisana Johnson MD - 05/13/2021 Version: 1 Study ID: [id number] + + + + : : : : : : Cardiovascular Laboratory :: : : : : + + + + [address] [place], [place] Pediatric Echocardiogram Report --+ : Name: AURELIANO MCCARTY Study Date:05/11/2021, 10:11 AM BP: 138 / 87 mmHg : : Patient Location:6M : : : 2005 (MM/DD/YYYY) Gender:Male Height: 175 cm: : Age: 15 Years Weight: 74 kg: : Reason For Study: Coarctation of the aorta BSA: 1.892 m??: : Ordering Physician: LUISANA JOHNSON S : : Referring Physician: LUISANA JOHNSON : : Performed By: Mariana Paredes RUST : : Exam Location: [facility] Pediatric Cardiology. : --+ Interpretation Summary Focused follow up study for hypertension and re-evaluation of aorticarch narrowing. No significant change from prior study. There is mild narrowing of the distal transverse aortic arch and isthmus(z-score -2.6) There is turbulent flow in the distal aortic arch, but no significantgradient, peak 14 mm Hg. The left ventricle has normal chamber size, wall thickness and systolicfunction. No left ventricular hypertrophy. There is a left ventricular falsetendon visualized (normal variant). The calculated left ventricular ejection fraction is 57 %, by Simpsonbiplane MOD. The estimated right ventricular systolic pressure by the tricuspidregurgitation is 26 mm Hg plus right atrial pressure (RAP). The right ventricle has normal chamber size, wall thickness and systolicfunction. MMode/2D Measurements & Calculations Ao Isth Diam: 0.96 cm Ao root diam(2D): 2.[address] Jx Diam(2D): 2.48 cm AoV marcial diam(2D): 2.06 cm asc Aorta(2D): 2.46 cm EDV(MOD-sp2): 143.0 ml EDV(MOD-sp4): 152.0 ml ESV(MOD-sp2): 54.5 ml ESV(MOD-sp4): 74.3 ml IVSd(MM): 0.92 cm LVIDd(MM): 5.7 cm LVIDs(MM): 3.9 cm LVLd ap2: 10.8 cm LVLd ap4: 10.0 cm LVLs ap2: 8.8 cm LVLs ap4: 8.3 cm LVPWd(MM): 0.88 cm Systolic Pressure: 138.0 mmHg Doppler Measurements & Calculations Lat Peak E' Marino: 20.6 cm/sec Med Peak E' Marino: 14.0 cm/sec MV A max marino: 38.6 cm/sec MV dec time: 0.26 secMV E max marino: 84.5 cm/sec TR max P.0 mmHg TR max marino: 255.2 cm/sec Other Measurements & Calculations EF(MOD-sp2): 61.9 % EF(MOD-sp4): 51.1 % FS(MM): 31.5 % LV mass(C)d(MM): 199.7 grams MV E/A: 2.19 SV(MOD-sp2): 88.5 ml SV(MOD-sp4): 77.7 ml [place] Z-Scores --+ : Measurement Name :Measurement Value :Z-Score :Predicted :Normal Range : + + -+ : : Ao root diam(2D) :2.8 cm :-0.18 :2.9 :2.29 - 3.5 : + + -+ : : AoV marcial diam(2D) :2.06 cm :-0.47 :2.16 :1.75 - 2.6 : + + -+ : : asc Aorta(2D) :2.46 cm :-0.43 :2.6 :1.98 - 3.2 : + + -+ : : LVIDd(MM) :5.7 cm :1.56 :5.1 :4.4 - 5.9 : + + -+ : : LVPWd(MM) :0.88 cm :-0.38 :0.93 :0.68 - 1.18 : + + -+ : : FS(MM) (vs. Age) :31.5 % :-1.06 :35.0 :28.8 - 42.5 : + + -+ : : LVIDs(MM) :3.9 cm :1.63 :3.3 :2.6 - 4.0 : + + -+ : : Ao ST Jx Diam(2D) :2.48 cm :0.06 :2.46 :1.89 - 3.0 : + + -+ : : IVSd(MM) :0.92 cm :-0.47 :0.99 :0.69 - 1.29 : + + -+ : : LV mass(C)d(MM) :199.7 grams :0.54 :179.2 :121.2 - 265.0 : + + -+ : : FS(MM) (vs. WS(merid.)(MM)) :31.5 %: : :: + + -+ : : FS(MM) (vs. WS(merid.)(MM), Age) :31.5 %: : :: : : -+ : : : :-1.06 :0.19 :0.13 - 0.24 : + + -+ : : Height (metric) :175.0 cm :-0.11 :175.8 :161.0 - 189.9 : + + -+ : : Weight (metric) (vs. Age, Gender) :74.0 kg :0.67 :65.9 :49.7 - 98.3 : + + -+ : : Systolic Pressure :138.0 mmH.5 :107.4 :83.8 - 131.0: + + -+ : : Diastolic Pressure :87.0 mmH.3 :55.5 :36.7 - 74.3: + + -+ : : Weight (metric) (vs. BZI_Metric_Height, Gender) :74.0 kg: : :: + + -+ : : BSA([facility]) :1.903 m?? :0.63 :1.76 :1.32 - 2.20 : + + -+ : : BMI :24.2 kilograms/m?? :0.78 :21.5 :17.4 - 31.2 : + + -+ : : Ao Tyrellth Diam :0.96 cm :-2.6 :1.71 :1.14 - 2.28 : + + -+ : : : :-0.12 :1.44 :0.95 - 1.93 : : : -+ : : : :0.15 :2.31 :1.64 - 3.0 : + + -+ : : : :-1.43 :1.53 :1.05 - 2.00 : + + -+ : --+ Position Levocardia. Cardiac Segments {S,D,S}. Veins Normal systemic venous drainage. At least one pulmonary vein from eachside enters normally into the left atrium. Atria Normal right atrial size. Normal left atrial size. Mitral Valve Normal mitral valve. There is no mitral valve stenosis. There is tracemitral regurgitation. Tricuspid Valve Structurally normal tricuspid valve. There is no tricuspid stenosis. Thereis trace tricuspid regurgitation. Right ventricular pressure estimate is 26mmHg exclusive of right atrial pressures. Left Ventricle Normal left ventricle structure and size. Left ventricular systolicfunction is normal. There is normal left ventricular wall thickness. Left Ventriclefalse tendon. Right Ventricle Normal right ventricle structure and size. Normal right ventricularsystolic function. Interatrial/Interventricular Septum Atrial septum appears intact. Intact ventricular septum. Aortic Valve Normal tricuspid aortic valve. Normal aortic valve velocity. No aortic regurgitation is present. Pulmonic Valve Normal pulmonic valve. No valvar pulmonary stenosis. Trace pulmonicvalvular regurgitation. Great Vessels Normal pulmonary artery branches. No patent ductus arteriosus detected. Hypoplastic aortic isthmus. Descending aortic velocity normal. Descendingaorta peak gradient measures 14 mm Hg. Coronaries Left coronary artery was not well seen. Right coronary artery was not wellseen. Pericardium and Pleura No pericardial effusion. Rhythm Normal sinus rhythm. CPT A complete congenital two-dimensional transthoracic pediatricechocardiogram was performed (2D, M-mode, Doppler and color flow Doppler). Reading Physician Luisana Johnson MD 05/13/2021, 3: 53 PM Luisana Johnson MD ECHO ORDERABLES * ECHO COMPLETE (06/28/2019 10:40 AM EDT) Anatomical Region Laterality Modality Other 06/28/2019 Narrative 06/28/2019 3:41 PM EDT Procedure: ?Pediatric Echocardiogram Patient: ?BIBIANA Leyva ?(Age): 2005(13y) ? Med Rec#: ? [id number] ?Sex: ?M ? Site Loc: ? [facility] ?Ht / Wt: ??174(cm)/70(kg) Pt. Loc: ?Pediatrics ?BSA: ?1.84 ([facility] [place]) Study Date: ?? 06/28/2019 ?Pt. Type: Study Quality: ? Referring: [facility] Referring: Luisana Johnson ([id number]) Reading: Luisana Johnson ([id number]) Cork Cutter: Nancy Leon Diagnosis: *Essential (primary) hypertension (I10) BP: ? 132/83 SUMMARY: 1. Focused follow up study for hypertension and re-evaluation of aortic arch narrowing. No significant change from prior study. 2. There is mild narrowing of the distal transverse aortic arch (z-score -2.3) and isthmus (z-score -2.9) 3. There is turbulent flow in the distal aortic arch, consistent with mild coarctation of the aorta with a peak gradient of 14 mm Hg (uncorrected). 4. The left ventricle has normal chamber size, wall thickness and systolic function. 5. No left ventricular hypertrophy. LV mass is calculated to be 220 grams, or 49 grams indexed to height2.7. 6. The calculated left ventricular ejection fraction is 68 %, by Encinas biplane MOD. 7. There is a left ventricular false tendon (LV band) visualized (normal variant). 8. The estimated right ventricular systolic pressure by the tricuspid regurgitation is 24 mm Hg plus right atrial pressure (RAP). 9. The right ventricle has normal chamber size, wall thickness and systolic function. 10. See remainder of report for additional findings. FINDINGS: ? Study Type ?2-D echo/SD/CD Situs And Relations ?There is levocardia with visceral and atrial situs solitus, atrioventricular concordance (D-looped ventricles) and normally related great arteries {S,D,S}. Venous Connections ?There are normal systemic venous connections, with the superior and inferior vena cavae returning to the right atrium. ?The pulmonary veins are not evaluated with this study. Atrial Septum ?The interatrial septum is intact with no evidence of an atrial septal defect or patent foramen ovale. Atria ?The right and left atria are of normal size. Av Valves ?The tricuspid valve is functionally and structurally normal. ?There is physiologic tricuspid regurgitation. ?The estimated right ventricular systolic pressure by the tricuspid regurgitation is 24 mm Hg plus right atrial pressure (RAP). ?The mitral valve is normal in structure with no stenosis or regurgitation. ?The left ventricular diastolic Doppler filling pattern is normal. Outflow Tracts ?The right and left ventricular outflow tracts have normal size and geometry, without obstruction or narrowing. Ventricles ?The right ventricle has normal chamber size, wall thickness and systolic function. ?The left ventricle has normal chamber size, wall thickness and systolic function. ?The calculated left ventricular ejection fraction is 68 %, by Encinas biplane MOD. ?There is a left ventricular false tendon (LV band) visualized (normal variant). Ventricular Septum ?The interventricular septum is intact with no evidence of a ventricular septal defect. Semilunar Valves ?There is laminar flow and a normal flow velocity across the pulmonary valve with no evidence of stenosis. ?There is physiologic pulmonary valve insufficiency. ?The aortic valve is normal with three leaflets, no stenosis, or insufficiency. Aortic Pulmonary Root ?The pulmonary root and sinuses are normal without dilatation or stenosis. ??The aorta sinuses of Valsalva and sinotubular junction are normal without stenosis or dilation. Thoracic Arteries ?The main and branch pulmonary arteries are normal in size and configuration, without narrowing or dilatation. ?There is no patent ductus arteriosus. ?The ascending aorta is normal size, without dilatation, narrowing or aneurysm. ?There is a left sided aortic arch.There is mild flow acceleration in the distal arch, with a peak gradient of 14 mmHg ?The aortic arch is mildly hypoplastic. ?The proximal transverse aortic arch (proximal to the left common carotid artery) measures 14.1 mm. (z score -2.29) ?The aortic isthmus diameter measures 9.1 mm distal to the left subclavian artery. (z score -2.92) ?There is turbulent flow in the distal aortic arch, consistent with a coarctation of the aorta. ?The peak velocity across the coarctation of the aorta is 1.87 meters/second. ?The peak gradient across the coarctation of the aorta is 14 mm Hg (uncorrected). ?Flow in the abdominal aorta is normal. Coronary Arteries ?The coronary arteries are not evaluated with this study. Effusion ?There is no pericardial or pleural effusion noted. Miscellaneous ?See remainder of report for additional findings. Chambers MM ? Value(Units) ?? Range ? Z Score IVSd MM ?11.3 ??mm ? (6.83 - 12.71) ?1 ?? LVPWd MM ? 11.3 ??mm ? (6.71 - 11.62) ?1.7 ?? LVEDd dim MM ? 52.1 ??mm ? (43.33 - 58.00) ?0.4 ?? LVEDs dim MM ? 32.8 ??mm ? (25.74 - 39.82) ?0 ?? EF (Teichholz) MM ?66.5 ??% ?-?? Chambers 2D ? Value(Units) ?? Range ? Z Score LAs dim (AP) 2D ?34.2 ??mm ? -?? Volumes ? Value(Units) ?? Range ? Z Score LV EDV SP 4C (MOD) ? 128 ??ml ?-?? LV EDV SP 2C (MOD) ? 144 ??ml ?-?? LV EDV BP (MOD) ?137 ??ml ?-?? LV ESV SP 4C (MOD) ? 48.5 ??ml ? -?? LV ESV SP 2C (MOD) ? 38.6 ??ml ? -?? LV ESV BP (MOD) ?44.2 ??ml ? -?? EF SP 4C (MOD) ? 62.1 ??% ?-?? EF SP 2C (MOD) ? 73.2 ??% ?-?? EF BP (MOD) ?68 ??% ?-?? Vanita / Sys Function ? Value(Units) ?? Range ? Z Score MV E-wave Vmax ? 66.1 ??cm/s ? -?? MV dec time ?165 ??ms ?-?? MV A-wave Vmax ? 44.7 ??cm/s ? -?? MV E:A ratio ? 1.5 ??ratio ? -?? LV septal e' Vmax ?12.5 ??cm/s ? -?? LV lateral e' Vmax ? 18.9 ??cm/s ? -?? LV E:e' septal ratio ? 5.3 ??ratio ? -?? LV E:e' lateral ratio ?3.5 ??ratio ? -?? Tricuspid Valve ? Value(Units) ?? Range ? Z Score TR Vmax ?2.44 ??m/s ?-?? TR peak gradient ? 24 ??mm Hg ?-?? RVSP ? 24 ? mm Hg ? Aorta ? Value(Units) ?? Range ? Z Score AV lauri diam 2D ? 19.9 ??mm ? (17.58 - 24.60) ?-0.7 ?? Ao root diam 2D ?26.6 ??mm ? (22.56 - 34.27) ?-0.6 ?? Ao STJ diam ?21.8 ??mm ? (18.85 - 27.83) ?-0.7 ?? Asc Ao diam (LAX) ?26.3 ??mm ? (20.22 - 30.89) ?0.3 ?? Trans Ao diam-prox (SSN) 14.1 ??mm ? (15.01 - 25.84) ?-2.3 ?? Isthmus diam (SSN) ? 9.1 ??mm ?(11.68 - 22.20) ?-3 ?? COA Vmax ? 1.87 ??m/s ?-?? COA peak gradient ?14 ??mm Hg ?-?? All Z scores are estimated This report has been electronically signed by: Luisana Johnson MD ? 06/28/2019 15:41:01 Images reviewed and interpretation verified [facility] Procedure Note Luisana Johnson MD - 06/28/2019 Procedure: Pediatric Echocardiogram Patient: BIBIANA Leyva DOB(Age): 2005(13y) Med Rec#: [id number] Sex: M Site Loc: [facility] Ht / Wt: 174(cm)/70(kg) Pt. Loc: Pediatrics BSA: 1.84 ([facility], [place], [facility]) Study Date: 06/28/2019 Pt. Type: Study Quality: Referring: EVANS MILLSMARK Referring: Luisana Johnson ([id number]) Reading: Luisana Johnson ([id number]) Cork Cutter: Nancy Leon Diagnosis: *Essential (primary) hypertension (I10) BP: 132/83 SUMMARY: 1. Focused follow up study for hypertension and re-evaluation of aortic arch narrowing. No significant change from prior study. 2. There is mild narrowing of the distal transverse aortic arch (z-score -2.3) and isthmus (z-score -2.9) 3. There is turbulent flow in the distal aortic arch, consistent with mild coarctation of the aorta with a peak gradient of 14 mm Hg (uncorrected). 4. The left ventricle has normal chamber size, wall thickness and systolic function. 5. No left ventricular hypertrophy. LV mass is calculated to be 220 grams, or 49 grams indexed to height2.7. 6. The calculated left ventricular ejection fraction is 68 %, by Encinas biplane MOD. 7. There is a left ventricular false tendon (LV band) visualized (normal variant). 8. The estimated right ventricular systolic pressure by the tricuspid regurgitation is 24 mm Hg plus right atrial pressure (RAP). 9. The right ventricle has normal chamber size, wall thickness and systolic function. 10. See remainder of report for additional findings. FINDINGS: Study Type 2-D echo/SD/CD Situs And Relations There is levocardia with visceral and atrial situs solitus, atrioventricular concordance (D-looped ventricles) and normally related great arteries {S,D,S}. Venous Connections There are normal systemic venous connections, with the superior and inferior vena cavae returning to the right atrium. The pulmonary veins are not evaluated with this study. Atrial Septum The interatrial septum is intact with no evidence of an atrial septal defect or patent foramen ovale. Atria The right and left atria are of normal size. Av Valves The tricuspid valve is functionally and structurally normal. There is physiologic tricuspid regurgitation. The estimated right ventricular systolic pressure by the tricuspid regurgitation is 24 mm Hg plus right atrial pressure (RAP). The mitral valve is normal in structure with no stenosis or regurgitation. The left ventricular diastolic Doppler filling pattern is normal. Outflow Tracts The right and left ventricular outflow tracts have normal size and geometry, without obstruction or narrowing. Ventricles The right ventricle has normal chamber size, wall thickness and systolic function. The left ventricle has normal chamber size, wall thickness and systolic function. The calculated left ventricular ejection fraction is 68 %, by Encinas biplane MOD. There is a left ventricular false tendon (LV band) visualized (normal variant). Ventricular Septum The interventricular septum is intact with no evidence of a ventricular septal defect. Semilunar Valves There is laminar flow and a normal flow velocity across the pulmonary valve with no evidence of stenosis. There is physiologic pulmonary valve insufficiency. The aortic valve is normal with three leaflets, no stenosis, or insufficiency. Aortic Pulmonary Root The pulmonary root and sinuses are normal without dilatation or stenosis. The aorta sinuses of Valsalva and sinotubular junction are normal without stenosis or dilation. Thoracic Arteries The main and branch pulmonary arteries are normal in size and configuration, without narrowing or dilatation. There is no patent ductus arteriosus. The ascending aorta is normal size, without dilatation, narrowing or aneurysm. There is a left sided aortic arch.There is mild flow acceleration in the distal arch, with a peak gradient of 14 mmHg The aortic arch is mildly hypoplastic. The proximal transverse aortic arch (proximal to the left common carotid artery) measures 14.1 mm. (z score -2.29) The aortic isthmus diameter measures 9.1 mm distal to the left subclavian artery. (z score -2.92) There is turbulent flow in the distal aortic arch, consistent with a coarctation of the aorta. The peak velocity across the coarctation of the aorta is 1.87 meters/second. The peak gradient across the coarctation of the aorta is 14 mm Hg (uncorrected). Flow in the abdominal aorta is normal. Coronary Arteries The coronary arteries are not evaluated with this study. Effusion There is no pericardial or pleural effusion noted. Miscellaneous See remainder of report for additional findings. Chambers MM Value(Units) Range Z Score IVSd MM 11.3 mm (6.83 - 12.71) ??1 LVPWd MM 11.3 mm (6.71 - 11.62) ??1.7 LVEDd dim MM 52.1 mm (43.33 - 58.00) 0.4 LVEDs dim MM 32.8 mm (25.74 - 39.82) 0 EF (Teichholz) MM 66.5 % -?? Chambers 2D Value(Units) Range Z Score LAs dim (AP) 2D 34.2 mm -?? Volumes Value(Units) Range Z Score LV EDV SP 4C (MOD) 128 ml -?? LV EDV SP 2C (MOD) 144 ml -?? LV EDV BP (MOD) 137 ml -?? LV ESV SP 4C (MOD) 48.5 ml -?? LV ESV SP 2C (MOD) 38.6 ml -?? LV ESV BP (MOD) 44.2 ml -?? EF SP 4C (MOD) 62.1 % -?? EF SP 2C (MOD) 73.2 % -?? EF BP (MOD) 68 % -?? Vanita / Sys Function Value(Units) Range Z Score MV E-wave Vmax 66.1 cm/s -?? MV dec time 165 ms -?? MV A-wave Vmax 44.7 cm/s -?? MV E:A ratio 1.5 ratio -?? LV septal e' Vmax 12.5 cm/s -?? LV lateral e' Vmax 18.9 cm/s -?? LV E:e' septal ratio 5.3 ratio -?? LV E:e' lateral ratio 3.5 ratio -?? Tricuspid Valve Value(Units) Range Z Score TR Vmax 2.44 m/s -?? TR peak gradient 24 mm Hg -?? RVSP 24 mm Hg Aorta Value(Units) Range Z Score AV lauri diam 2D 19.9 mm (17.58 - 24.60) -0.7 Ao root diam 2D 26.6 mm (22.56 - 34.27) -0.6 Ao STJ diam 21.8 mm (18.85 - 27.83) -0.7 Asc Ao diam (LAX) 26.3 mm (20.22 - 30.89) 0.3 Trans Ao diam-prox (SSN) 14.1 mm (15.01 - 25.84) -2.3 Isthmus diam (SSN) 9.1 mm (11.68 - 22.20) -3 COA Vmax 1.87 m/s -?? COA peak gradient 14 mm Hg -?? 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
--- OUTSIDE RECORDS SUMMARY | 2023-09-15 15:36 | XMS_ITS | Encounter Summary ---
[place] [address] Care Team Providers Care Tire Repairman Name Role Phone Malcolm Yi MD Primary Care Provider [phone] Encounter Details Date Type Department Care Team (Late st Contact Info) Description 12/28/2018 Telephone [place] [phone] Anaid Kamara Social History Tobacco Use Types [...] 9:30 AM EDT Appointment [place] [phone] Luisana Walsh MD [facility] [place] [address] 10/04/2023 10:30 AM EDT Scheduled View [place] [phone] 10/04/2023 11:00 AM EDT Office [place] [phone] Luisana Walsh MD [facility] [place] [address] 10/04/2023 11:30 AM EDT Office Visit [place] [phone] Kam Huggins, DO [address] [facility] [place] [address] documented as of this encounter Visit Diagnoses Not on filedocumented in this encounter Care Teams Tire Repairman Relationship Specialty Start Date End Date Malcolm Yi MD [address] [place] [address] PCP - General Pediatrics 12/22/18 06/29/21 documented as of this encounter
--- OUTSIDE RECORDS SUMMARY | 2023-09-15 15:36 | XMS_ITS | Encounter Summary ---
[place] [address] Care Team Providers Care Interpersonal Communications Professor Name Role Phone Malcolm Yi MD Primary Care Provider [phone] Encounter Details Date Type Department Care Team (Late st Contact Info) Description 01/25/2019 Telephone [place] [phone] Arleth Goldberg RN Social History Tobacco Use Types Packs/Day Years Used Date Smoking Tobacco: Never Smokeless Tobacco: Never Sex and Gender Information Value Date Recorded Sex Assigned at Not on file Gender Identity Not on file Sexual Orientation Not on file documented as of this encounter Miscellaneous Notes * Telephone Encounter - Arleth Wilkinson RN - 01/30/2019 2:53 PM EST Called [facility] to discuss results. She understands and denies further questions at this time. Appointment scheduled for June 2019. * Telephone Encounter - Arleth Wilkinson RN - 01/25/2019 2:29 PM EST ----- Message from Anaid Kamara sent at 01/24/2019 1:21 PM EST ----- Contact: [facility] [place] SHANKAR CALLED FOR RESULTS OF MONITOR PLACED ON 12/28. I DO NOT SEE THAT THE RESULTS ARE BACK. PLEASECALL HER WHEN RESULTS ARE IN V[place]NIE [phone] documented in this encounter Plan of Treatment Upcoming Encounters Date Type Department Care Team (Late st Contact Info) Description 10/04/2023 9:30 AM EDT Appointment [place] [phone] Luisana Walsh MD [facility] [place] [address] 10/04/2023 10:30 AM EDT Scheduled View [place] [phone] 10/04/2023 11:00 AM EDT Office Visit [place] [phone] Luisana Walsh MD [facility] [place] [address] 10/04/2023 11:30 AM EDT Office Visit [place] [phone] Kam Huggins, DO [address] [facility] PEDIATRIC [place] [address] documented as of this encounter Visit Diagnoses Not on filedocumented in this encounter Care Teams Interpersonal Communications Professor Relationship Specialty Start Date End Date Malcolm Yi MD [address] [place] [address] PCP - General Pediatrics 12/22/18 06/29/21 documented as of this encounter
--- OUTSIDE RECORDS SUMMARY | 2023-09-15 15:36 | XMS_ITS | Encounter Summary ---
[place] [address] Care Team Providers Care Pool Attendant Name Role Phone Malcolm Yi MD Primary Care Provider [phone] Reason for Referral * Diagnostic Test (Routine) - Closed Specialty Diagnoses / Procedures Referred By Contac t Referred To Contact Cardiology Diagnoses Hypertension, unspecified type Procedures Echocardiogram Transthoracic([facility]) Luisana Johnson MD [facility] [address] [place] [address] [facility] [place] [address] Referral ID Status Reason Start Date Expiration Date V isits Requested Visits Authorized [id number] Closed Specialty Service Requested 12/28/2018 12/28/2019 1 1 Reason for Visit * Reason Comments Hypertension * Consultation (CHRISTOPHER) - Closed Specialty Diagnoses / Procedures Referred By Contac t Referred To Contact Pediatric Cardiology Diagnoses HYPERTENSION, CARDIOMEGALY, HIGH LDL Van Varner MD [address] [place] [address] [place] [address] [facility] Pedi Cardiology [address] [place] [phone] Referral ID Status Reason Start Date Expiration Date V isits Requested Visits Authorized [id number] Closed Consult, Test & Treat Connection Center PCP Updated and/or Approved 12/22/2018 12/22/2019 1 1 Encounter Details Date Type Department Care Team (Late st Contact Info) Description 12/28/2018 1:00 PM EST Office [place] [address] Luisana Johnson MD [facility] DR [place] [address] Hypertension, unspecified type; Elevated LDL cholesterol level Social History Tobacco Use Types Packs/Day Years Used Date Smoking Tobacco: Never Smokeless Tobacco: Never Sex and Gender Information Value Date Recorded Sex Assigned at Not on file Gender Identity Not on file Sexual Orientation Not on file documented as of this encounter Last Filed Vital Signs Vital Sign Reading Time Taken Comments Blood Pressure 177/61 12/28/2018 1:08 PM EST Pulse 56 12/28/2018 1:03 PM EST Temperature - - Respiratory Rate - - Oxygen Saturation 100% 12/28/2018 1:03 PM EST Inhaled Oxygen Concentration - - Weight 67.6 kg (149 lb 1.6 oz) 12/28/2018 1:03 P M EST Height 172.5 cm (5' 7.91) 12/28/2018 1:03 PM ES T Body Mass Index 22.73 12/28/2018 1:03 PM EST Body Mass Index Percentile 80.44% 12/28/2018 1:0 3 PM EST Growth Chart: CDC (Boys, 2-2 0 Years) documented in this encounter Progress Notes * Luisana Johnson MD - 12/28/2018 1:00 PM EST Pediatric Cardiology Outpatient Consultation Note Name: Aureliano Mancilla : 2005 Age: 13 y.o. Location: [facility] Referring Provider: Malcolm Yi MD Reason for Consult/CC: High blood pressure, elevated cholesterol Dear Dr. Malcolm Yi MD, It was a pleasure evaluating Aureliano Mancilla today in the pediatric cardiology clinic, accompaniedby his mother. Aureliano Mancilla is a 13 y.o. male, who presents with high blood pressure, elevated cholesterol and an abnormal ECG. His mother reports long-standing high blood pressure for the last 3years, detected at his well-child checks. Reports from his meteorology faculty member suggest blood pressure in the 140-150/70-80 range. He has never been treated for blood pressure and has never seen another specialist. They have used his father's blood pressure cuff at home and checked each morning for about 1week with recordings of: 123/97, 133/64, 104/76, 116/84, 132/80. Aureliano denies any symptoms, including chest pain, palpitations, headache, or syncope. He plays soccer and basketball and has no symptoms with exercise. An ECG was performed and demonstrated LVH, and blood work demonstrated a normal BMPand a lipid panel significant for an elevated LDL of 161 but otherwise normal. Diet recall: -The family eats out once a week, but otherwise eats home cooked meals -Typical breakfast consists of leftovers from dinner - Lunch: Jackson and cheese wrap with hummus and veggies - Dinner: Meat, starch, and veggies - Low salt on foods at home - Drinks 2-3 glasses of limeade or lemonade/day - Recently switch from eating crackers to eating fruit and/or hummus with veggies as a snack after finding out his cholesterol was elevated. Past medical history: There is no problem list on file for this patient. Past surgical history: No past surgical history [...] Pollen Extracts Physical Exam: Visit Vitals BP 177/61 (BP Location (NBP): Right leg, Patient Position: Lying, BP Cuff Sizes: Adult (25-34 cm)) Pulse (!) 56 Ht 172.5 cm (5' 7.91) Wt 67.6 kg (149 lb 1.6 oz) SpO2 100% BMI 22.73 kg/m?? General: Alert, cooperative, in no distress, appropriate for age HEENT: Normocephalic, no obvious abnormality, conjunctiva and corneas clear, nares symmetrical, oral mucosa are moist, pink. Throat is supple, symmetrical; no carotid bruit, no JVD Chest: No mass or tenderness to palpation along the costochondral joints Lungs: Clear to auscultation bilaterally, respirations unlabored Heart: Regular rhythm, normal rate for age. Non-displaced PMI. Normal S1 and physiologically split S2; no murmur, clicks, rubs or gallops. 2+ pulses in upper and lower extremities. Capillary refill <2 seconds in distal extremities. No edema Abdomen: Soft, non-tender, non-distended, no hepatomegaly Musculoskeletal: Tone and strength normal and symmetrical with normal ROM Skin: Skin warm, dry, and intact, no rashes, no distal clubbing Neurologic: Alert and oriented, no focal defect noted I personally reviewed and interpreted the following results. ECG (12/20/2018) reviewed by me on 12/28/18: Normal sinus rhythm with sinus arrhythmia. Normal axes and intervals. LVH by voltage in V6 and V1. Ventricular rate 64 bpm R-wave axis 38 LA interval 140 msec QRS duration 112 msec QTc 406 msec Complete congenital 2D echocardiogram with color flow and Doppler analysis 12/28/18: 1. There is a left ventricular false tendon (LV band) visualized (normal variant). 2. There is a left sided aortic arch. 3. There is mild flow acceleration in the distal arch, with a peak gradient of 17 mmHg 4. Flow in the abdominal aorta is normal. 5. Left and right ventricular chamber size, wall thickness and systolic performance appear normal. 6. See remainder of report for additional findings. Assessment: Aureliano Mancilla is a 13 y.o. male who presents with long-standing high blood pressure and new findings of elevated LDL on recent blood work. 1. High blood pressure: An echocardiogram was performed to evaluate for left ventricular hypertrophy due to the abnormal ECG. There was no evidence of hypertrophy, but there was mild narrowing in the distal aortic arch witha peak gradient of 17 mmHg. He did not have a blood pressure gradient, and this gradient would not be enough to explain significant hypertension but may contribute to it. The gradient is mild and does not require intervention. Aureliano's blood pressure was reported as near normal when measured at home, so his high pressures may also be related to anxiety while in clinic. On the other hand, with systolic BP's >150 on multiple occassions, he requires further work-up with an ambulatory blood pressure monitor for home. This will give a better overview of what his BP does while at rest and help further guide decisions for treatment 2. Elevated Lipid: Aureliano was given a nutrition guide for home and asked to make a few specific changes to his diet (listed below). He and his family generally eat pretty healthy and he is very active, so unfortunately he may have a familial component of hyperlipidemia that may not be controlled with diet. This will be re-assessed in 6 months after diet changes are in place and decisions about treatment will be determined at follow up. Plan: - Diet changes: Eliminate limeade/lemonade (have as a treat once in a while), decrease baked goods and process foods/snacks, substitute high fat meats and cheese for lower fat options (as described in nutrition guide) - Repeat fasting lipid panel in 6 months, prior to his follow up appointment with me - If lipids continue to be elevated despite diet changes, will plan to have him meet with nutritionat next visit and/or discuss starting medications if indicated - Follow up for blood pressure depends on results of ambulatory BP monitor - will either be with meor with Nephrology in the next 2-3 months - Follow up with me in 6 months to re-evaluate lipid abnormalities - No restrictions to activity and no new medications recommended. - Endocarditis prophylaxis is not indicated per current AHA guidelines. Thank you for your referral. If there are any questions we can answer in follow- up, please call ourteam at any time. Luisana Johnson MD [facility] Pediatric Cardiology documented in this encounter Plan of Treatment Upcoming Encounters Date Type Department Care Team (Late st Contact Info) Description 10/04/2023 9:30 AM EDT Appointment [place] [phone] Luisana Johnson MD [facility] DR [place] [address] 10/04/2023 10:30 AM EDT Scheduled View [place] [phone] 10/04/2023 11:00 AM EDT Office [place] [address] Luisana Johnson MD [facility] [place] [address] 10/04/2023 11:30 AM EDT Office [place] [address] Kam Huggins, DO [address] [facility] [place] [address] documented as of this encounter Procedures Procedure Name Priority Date/Time Associated Diagnosis Comments ECHO COMPLETE Routine 12/28/2018 2:48 PM EST Hypertension, unspecified type documented in this encounter Results * ECHO COMPLETE (12/28/2018 2:48 PM EST) Anatomical Region Laterality Modality Other 12/28/2018 Narrative 12/28/2018 3:35 PM EST Procedure: ?Pediatric Echocardiogram Patient: ?BIBIANA Leyva ?(Age): 2005(13y) ? Med Rec#: ? [id number] ?Sex: ?M ? Site Loc: ? [facility] ?Ht / Wt: ??172(cm)/67(kg) Pt. Loc: ?Pediatrics ?BSA: ?1.791 ([facility]) Study Date: ?? 12/28/2018 ?Pt. Type: Study Quality: ? Referring: LUISANA JOHNSON S Reading: Luisana Johnson ([id number]) Surveillance Camera Technician: Nancy Leon Diagnosis: *Essential (primary) hypertension (I10) BP: ? 149/82 SUMMARY: 1. There is a left ventricular false tendon (LV band) visualized (normal variant). 2. There is a left sided aortic arch. 3. There is mild flow acceleration in the distal arch, with a peak gradient of 17 mmHg 4. Flow in the abdominal aorta is normal. 5. Left and right ventricular chamber size, wall thickness and systolic performance appear normal. 6. See remainder of report for additional findings. FINDINGS: ? Study Type ?2-D echo/SD/CD Situs And Relations ?There is levocardia with visceral and atrial situs solitus, atrioventricular concordance (D-looped ventricles) and normally related great arteries {S,D,S}. Venous Connections ?There are normal systemic venous connections, with the superior and inferior vena cavae returning to the right atrium. ?At least one pulmonary vein from each side enters the left atrium. Atrial Septum ?The interatrial septum is intact with no evidence of an atrial septal defect or patent foramen ovale. Atria ?The right and left atria are of normal size. Av Valves ?The tricuspid valve is functionally and structurally normal. ?There is physiologic tricuspid regurgitation. ?The mitral valve is normal in structure with no stenosis or regurgitation. Outflow Tracts ?The right and left ventricular outflow tracts have normal size and geometry, without obstruction or narrowing. Ventricles ?The right ventricle has normal chamber size, wall thickness and systolic function. ?The left ventricle has normal chamber size, wall thickness and systolic function. ?There is a left ventricular false tendon [...] distal arch, with a peak gradient of 17 mmHg ?Flow in the abdominal aorta is normal. Coronary Arteries ?The left main coronary artery originates normally from the left coronary sinus. ?The right coronary artery originates normally from the right coronary sinus. Effusion ?There is no pericardial or pleural effusion noted. Miscellaneous ?See remainder of report for additional findings. ?Normal exam. No anatomic abnormality was seen with complete standard exam. Left and right ventricular chamber size, wall thickness and systolic performance appear normal. Chambers MM ?Value ?Units (Range) ? Z Score ? IVSd MM ? 11 ? mm (6.68 - 12.56) ?? 0.9 ? LVPWd MM ?9.9 ?mm (6.57 - 11.49) ?? 0.7 ? LVEDd dim MM ?57.2 ? mm (42.73 - 57.49) ??1.9 ? LVEDd dim MM / BSA ??31.96 ?mm/m2 ? LVEDs dim MM ?36.3 ? mm (25.36 - 39.44) ??1.1 ? LVEDs dim MM / BSA ??20.28 ?mm/m2 ? LV FS MM ?37 ? % ? EF (Teichholz) MM ?? 66 ? % ? Chambers 2D ?Value ?Units (Range) ? Z Score ? LAs dim (AP) 2D ? 33.3 ? mm ? Aorta ?Value ?Units (Range) ? Z Score ? AV lauri diam 2D ?20 ? mm (16.99 - 24.99) ??-0.5 ? Ao root diam 2D ? 27 ? mm (22.18 - 34.1) ?? -0.4 ? Ao root diam (2D) / 15.08 ?mm/m2 ? Ao STJ diam ? 22 ? mm (18.32 - 29.48) ??-0.7 ? Asc Ao diam (LAX) ?? 26 ? mm (19.17 - 31.25) ??0.3 ? Trans Ao diam-prox (25 ? mm (15.49 - 25.57) ??1.8 ? Isthmus diam (SSN) ??13 ? mm (11 - 22.2) ?-1.3 ? All Z scores are estimated This report has been electronically signed by: Luisana Johnson MD ? 12/28/2018 15:34:29 Images reviewed and interpretation verified [facility] Cardiac Ultrasound [facility] Procedure Note Luisana Johnson MD - 12/28/2018 Procedure: Pediatric Echocardiogram Patient: BIBIANA Leyva DOB(Age): 2005(13y) Med Rec#: [id number] Sex: M Site Loc: [facility] Ht / Wt: 172(cm)/67(kg) Pt. Loc: Pediatrics BSA: 1.791 ([facility]) Study Date: 12/28/2018 Pt. Type: Study Quality: Referring: LUISANA JOHNSON S Reading: Luisana Johnson ([id number]) Surveillance Camera Technician: Nancy Leon Diagnosis: *Essential (primary) hypertension (I10) BP: 149/82 SUMMARY: 1. There is a left ventricular false tendon (LV band) visualized (normal variant). 2. There is a left sided aortic arch. 3. There is mild flow acceleration in the distal arch, with a peak gradient of 17 mmHg 4. Flow in the abdominal aorta is normal. 5. Left and right ventricular chamber size, wall thickness and systolic performance appear normal. 6. See remainder of report for additional findings. FINDINGS: Study Type 2-D echo/SD/CD Situs And Relations There is levocardia with visceral and atrial situs solitus, atrioventricular concordance (D-looped ventricles) and normally related great arteries {S,D,S}. Venous Connections There are normal systemic venous connections, with the superior and inferior vena cavae returning to the right atrium. At least one pulmonary vein from each side enters the left atrium. Atrial Septum The interatrial septum is intact with no evidence of an atrial septal defect or patent foramen ovale. Atria The right and left atria are of normal size. Av Valves The tricuspid valve is functionally and structurally normal. There is physiologic tricuspid regurgitation. The mitral valve is normal in structure with no stenosis or regurgitation. Outflow Tracts The right and left ventricular outflow tracts have normal size and geometry, without obstruction or narrowing. Ventricles The right ventricle has normal chamber size, wall thickness and systolic function. The left ventricle has normal chamber size, wall thickness and systolic function. There is a left ventricular false tendon [...] distal arch, with a peak gradient of 17 mmHg Flow in the abdominal aorta is normal. Coronary Arteries The left main coronary artery originates normally from the left coronary sinus. The right coronary artery originates normally from the right coronary sinus. Effusion There is no pericardial or pleural effusion noted. Miscellaneous See remainder of report for additional findings. Normal exam. No anatomic abnormality was seen with complete standard exam. Left and right ventricular chamber size, wall thickness and systolic performance appear normal. Chambers MM Value Units (Range) Z Score IVSd MM 11 mm (6.68 - 12.56) 0.9 LVPWd MM 9.9 mm (6.57 - 11.49) 0.7 LVEDd dim MM 57.2 mm (42.73 - 57.49) 1.9 LVEDd dim MM / BSA 31.96 mm/m2 LVEDs dim MM 36.3 mm (25.36 - 39.44) 1.1 LVEDs dim MM / BSA 20.28 mm/m2 LV FS MM 37 % EF (Teichholz) MM 66 % Chambers 2D Value Units (Range) Z Score LAs dim (AP) 2D 33.3 mm Aorta Value Units (Range) Z Score AV lauri diam 2D 20 mm (16.99 - 24.99) -0.5 Ao root diam 2D 27 mm (22.18 - 34.1) -0.4 Ao root diam (2D) / 15.08 mm/m2 Ao STJ diam 22 mm (18.32 - 29.48) -0.7 Asc Ao diam (LAX) 26 mm (19.17 - 31.25) 0.3 Trans Ao diam-prox (25 mm (15.49 - 25.57) 1.8 Isthmus diam (SSN) 13 mm (11 - 22.2) -1.3 All Z scores are estimated This report has been electronically signed by: Luisana Johnson MD 12/28/2018 15:34:29 Images reviewed and interpretation verified [facility] Luisana Johnson MD ECHO ORDERABLES documented in this encounter Visit Diagnoses Diagnosis Hypertension, unspecified type Elevated LDL cholesterol level Pure hypercholesterolemia documented in this encounter Care Teams Pool Attendant Relationship Specialty Start Date End Date Malcolm Yi MD [address] [place] [address] [place] [address] PCP - General Pediatrics 12/22/18 06/29/21 documented as of this encounter
--- OUTSIDE RECORDS SUMMARY | 2023-09-15 15:36 | XMS_ITS | Encounter Summary ---
[place] [address] Care Team Providers Care Schedule Maker Name Role Phone Malcolm Yi MD Primary Care Provider [phone] Reason for Visit * Consultation (Routine) - Closed Specialty Diagnoses / Procedures Referred By Rosalina rodriguez Referred To Contact Pediatric Nephrology Diagnoses Hypertension, unspecified type Luisana Walsh MD [facility] DR [place] [address] [facility] [address] [place] [phone] Referral ID Status Reason Start Date Expiration Date V isits Requested Visits Authorized [id number] Closed Consult, Test & Treat 06/28/2019 06/27/2020 1 1 Encounter Details Date Type Department Care Team (Late st Contact Info) Description 08/09/2019 2:00 PM EDT Office [place] [address] Kam Huggins, DO 100 [facility] [place]EDIATRIC [place] [address] Hypertension, unspecified type Social History Tobacco Use Types Packs/Day Years Used Date Smoking Tobacco: Never Smokeless Tobacco: Never Sex and Gender Information Value Date Recorded Sex Assigned at Not on file Gender Identity Not on file Sexual Orientation Not on file documented as of this encounter Last Filed Vital Signs Vital Sign Reading Time Taken Comments Blood Pressure 138/75 08/09/2019 1:49 PM EDT Pulse 68 08/09/2019 1:49 PM EDT Temperature - - Respiratory Rate - - Oxygen Saturation - - Inhaled Oxygen Concentration - - Weight 70.4 kg (155 lb 3.2 oz) 08/09/2019 1:49 P M EDT Height 173.9 cm (5' 8.47) 08/09/2019 1:49 PM ED T Body Mass Index 23.28 08/09/2019 1:49 PM EDT Body Mass Index Percentile 81.01% 08/09/2019 1:4 9 PM EDT Growth Chart: [facility] (Boys, 2-2 0 Years) documented in this encounter Patient Instructions * Patient Instructions* Kam Huggins, DO - 08/09/2019 2:00 PM EDT Aureliano's Plan: Follow BP at home with home cuff about once a week Will see back in 3 months Based on How well you are doing we will stay with your current therapies but add in a few below The anti-inflammatory diet I recommend increasing fruits and vegetables up to at least 5 servings per day, use olive oil or canola oil only, increase grains and keep noodles al dente. Smoothies are agreat way to increase your fruit intake. You could add ground flax seed to it to add the [place] 3???s. We can discuss the elimination diet [...] 1 tsp of the oil. KiddOmega from [employer], 1 tsp a day, from [employer] or SL[employer]Z | [employer], Film FreshomeInversiones.com [place]-3 (350 mg of EPA and 230 mg of DHA per packet) are ones I commonly used in children. Also consider Barleans flavored omega 3???s or [place] Naturals Juan M chewables. If you choose [...] biofeedback instead, I recommend the system at Voxel (Internap), FluTrends International or we can work with you here [...] http://www.mindfulnesstapes.com/ Dr Hernandez Miller's mindfulness meditation tapes http://www.Eagle-i Music.SumZero/pmr.htm Guide to progressive muscle relaxation http://www.Lucid Design Group.SumZero/health/yoga/WI88293 5 Yoga poses for stress management http://www.taichinetwork.org/ Connecting students with teachers in the area. www.youUpkeep Charlie.com Search for meditation, relaxation, guided visualization or yoga. Keep sifting through until you find what you like and then write it down so you can revisit. http://www.[facility]edu/files/webfm-uploads/documents/outreach/im/module_medi tation_patient.pdf Handout on types of meditation/CDs: [...] Progress Notes * Kam Huggins DO - 08/09/2019 2:00 PM EDT Pediatric Nephrology/Integrative Medicine Consult Aureliano Mancilla is an 13 y.o. 8 m.o. male with elevated BP who we are seeing for integrative techniques regarding the above. Referred by Malcolm Yi MD HISTORY OF PRESENT ILLNESS Aureliano comes in today in referred consultation [...] ??? Pollen Extracts PHYSICAL EXAM Constitutional: BP 138/75 Pulse 68 Ht 173.9 cm (5' 8.47) Wt 70.4 kg (155 lb 3.2 oz) BMI 23.28 kg/m?? General Appearance: alert, well appearing and [...] deficit Skin: normal ASSESSMENT Aureliano is a 13 y.o. 8 m.o. male with elevated BP He has [...] studies that were done earlier were normal. When looking at high blood pressure, the [...] would be thyroid issues, adrenal issues and FOOD AND NUTRITION SERVICES ASSISTANT disease- all of which typically have more [...] conventional medicine, whole systems such as traditional Romanian medicine, Ayurvedic medicine, Western medicine and homeopathy, nutrition,exercise, supplements, botanical medicine, mind body therapies, energy medicine, manual manipulation, and spirituality. I think there are a number of things that we can do for Aureliano to help as indicated below. PLAN I recommend the following plan for Aureliano: Aureliano's Plan: Follow BP at home with home cuff about once a week Will see back in 3 months Based on How well you are doing we will stay with your current therapies but add in a few below The anti-inflammatory diet I recommend increasing fruits and vegetables up to at least 5 servings per day, use olive oil or canola oil only, increase grains and keep noodles al dente. Smoothies are agreat way to increase your fruit intake. You could add ground flax seed to it to add the [place] 3???s. We can discuss the elimination diet [...] or about 1 tsp of the oil. Yeison from [employer], 1 tsp a day, from [employer] or SL[employer]Z | [employer], [employer] [place]-3 (350 mg of EPA and 230 mg of DHA per packet) are ones I commonly used in children. Also consider [place] flavored omega 3???s or [place] Naturals Juan M chewables. If you choose [...] biofeedback instead, I recommend the system at [employer] (Internap), [employer] International or we can work with you here [...] http://www.mindfulnesstapes.com/ Dr Hernandez Miller's mindfulness meditation tapes http://www.Veeipy.com/pmr.htm Guide to progressive muscle relaxation http://www.Lucid Design Group.SumZero/health/yoga/CT07830 5 Yoga poses for stress management http://www.taichinetwork.org/ Connecting students with teachers in the area. www.Beyond Encryption Technologies.com Search for meditation, relaxation, guided visualization or yoga. Keep sifting through until you find what you like and then write it down so you can revisit. http://www.[facility]edu/files/webfm-uploads/documents/outreach/im/module_medi tation_patient.pdf Handout on types of meditation/CDs: Breathing: the Master Busby to Self-Healing (Chad Ponce) Relieve Anxiety (Jose Mckoy), also Deep Sleep (Leelee) For Breath work consider: http://doasone.com/Default.aspx Botanicals/Supplements Dark chocolate (70% cocoa content) in place of other sweets Consider coenzyme Q10 100-400 mg a day Consider hawthorn, an herb which promotes overall cardiovascular health see hypertension handout I had an extensive visit (approximately 40 minutes) with Aureliano and his family. I outlined the aboveissues. 35 minutes of the time was spent counseling regarding the above. They appear to understand and agree with the plan. I asked them to come back in 3 months. Kam Huggins DO CC:Malcolm Yi MD documented in this encounter Plan of Treatment Upcoming Encounters Date Type Department Care Team (Late st Contact Info) Description 10/04/2023 9:30 AM EDT Appointment [place] [address] Luisana Walsh MD [facility] DR [place] [address] 10/04/2023 10:30 AM EDT Scheduled View [place] [address] 10/04/2023 11:00 AM EDT Office [place] [address] Luisana Walsh MD [facility] [place] [address] 10/04/2023 11:30 AM EDT Office [place] [phone] Kam Huggins DO 100 [facility] [place]EDIATRIC [place] [address] Scheduled Referrals Name Type Priority Associated Diagnoses Orde r Schedule Referral to Pediatric Nephrology Outpatient Referral Routine Hypertension, unspecified type Ordered: 06/28/2019 documented as of this encounter Visit Diagnoses Diagnosis Hypertension, unspecified type documented in this encounter Care Teams Schedule Maker Relationship Specialty Start Date End Date Malcolm Yi MD [address] [place] [address] PCP - General Pediatrics 12/22/18 06/29/21 documented as of this encounter"
--- OUTSIDE RECORDS SUMMARY | 2023-09-15 15:36 | XMS_ITS | Encounter Summary ---
Author Organization [facility] [place] [address] Care Team Providers Care Production Technologist Name Role Phone Malcolm Yi MD Primary Care Provider [phone] Encounter Details Date Type Department Care Team (Late st Contact Info) Description 06/29/2019 Orders Only Pediatric [place] [address] Nona Huggins, DO 100 [facility] [place] [address] Hypertension, unspecified type; Hypoplasia of aortic arch Social History [...] 9:30 AM EDT Appointment [place] [phone] Luisana Walsh MD [facility] DR PEDIATR[place] [address] 10/04/2023 10:30 AM EDT Scheduled View Only [place] [phone] 10/04/2023 11:00 AM EDT Office Visit [place] [phone] Luisana Walsh MD [facility] DR PEDIATR[place] [address] 10/04/2023 11:30 AM EDT Office Visit [place] [address] Nona Huggins, DO 100 [facility] [place] [address] documented as of this encounter Results * US Retroperitoneal Complete (08/09/2019 1:18 PM EDT) Anatomical Region Laterality Modality Abdomen Ultrasound 08/09/2019 12:5 5 PM EDT Impressions 08/09/2019 2:44 PM EDT ?? Normal size and echogenicity of the bilateral kidneys without hydronephrosis. I have personally reviewed the image(s) and the resident's interpretation and agree with the findings, Skye Sams at 08/09/2019 2:38 PM Thank you for letting us participate in the care of this patient. For questions regarding this report, please contact the number below. ? Skye Sams, Staff Physician Electronically Signed Final Report ?? 08/09/2019 02:44 pm Narrative 08/09/2019 2:44 PM EDT Pediatric Renal ? (Signed Final 08/09/2019 02:44 pm) PATIENT INFO: ID #: ? [id number] ?: ??[birth year] (13 yrs)(M) Name: ? JOSE C MCCARTY ? Visit Date: 08/09/2019 12:55 pm PERFORMED BY: Performed By: ? Manisha Ronquillo RDMS Attending: ?Latrell GANDARA, Skye Leahy Resident: ? Valerie GANDARA, Umm Jimenez Referred By: ?NONA Jolley HAND Location: ? [place] SERVICE(S) PROVIDED: ??URETRO - Retroperitoneal Complete ( Pediatric) - ?[id number] ??[id number] INDICATIONS: ??h/o hypertension and aortic arch hypolasia RIGHT KIDNEY: ??Date ? L(cm) ? AP(cm) ? TV(cm) ?Vol ??08/09/19 ? 10.3 Morphology: ? Normal Position: ? Normal Hydronephrosis: ?? No sonographic evidence LEFT KIDNEY: ??Date ? L(cm) ? AP(cm) ? TV(cm) ?Vol ??08/09/19 ? 10.3 Morphology: ? Normal Position: ? Normal Hydronephrosis: ?? No sonographic evidence -------- URETERS: -------- Right: ?? Not visualized Left: ?Not visualized URINARY BLADDER: Pre-void (cm) ? L: ??6.3 ? AP: ??5.2 ? TV: ??7.5 Vol (ml): ?128.6 Comment: ?Partially distended, normal contour Procedure Note Skye Sams MD - 08/09/2019 Pediatric Renal (Signed Final 08/09/2019 02:44 pm) PATIENT INFO: ID #: [id number] : [birth year] (13 yrs)(M) Name: JOSE C MCCARTY Visit Date: 08/09/2019 12:55 pm PERFORMED BY: Performed By: Manisha Ronquillo RDMS Attending: Skye Sams MD Resident: Umm Padilla MD Referred By: NONA HUGGINS Location: [place] SERVICE(S) PROVIDED: URETRO - Retroperitoneal Complete ( Pediatric) - [id number] INDICATIONS: h/o hypertension and aortic arch hypolasia RIGHT KIDNEY: Date L(cm) AP(cm) TV(cm) Vol 08/09/19 10.3 Morphology: Normal Position: Normal Hydronephrosis: No sonographic evidence LEFT KIDNEY: Date L(cm) AP(cm) TV(cm) Vol 08/09/19 10.3 Morphology: Normal Position: Normal Hydronephrosis: No sonographic evidence -------- URETERS: -------- Right: Not visualized Left: Not visualized URINARY BLADDER: Pre-void (cm) L: 6.3 AP: 5.2 TV: 7.5 Vol (ml): 128.6 Comment: Partially distended, normal contour IMPRESSION Normal size and echogenicity of the bilateral kidneys without hydronephrosis. I have personally reviewed the image(s) and the resident's interpretation and agree with the findings, Skye Sams at 08/09/2019 2:38 PM Thank you for letting us participate in the care of this patient. For questions regarding this report, please contact the number below. Skye Sams, Staff Physician Electronically Signed Final Report 08/09/2019 02:44 pm Nona Huggins DO IMG US GEN ORDERABLE S * Duplex Study Renal Arteries, Bilat (08/09/2019 10:05 AM EDT) VB Text Report Department: Vascular Surgery Lab Patient: [id number] (BIBIANA JOSE C) CPT: 27440 ICD10: I10;Q25.42 Referring Physician: NONA HUGGINS ?? Phone: Indications: ??HTN, hypoplastic aortic arch, ? renal artery stenosis ICD10 Diagnosis Code: I10, Q25.42 Findings: Alma Renal Aorta ? PSV (cm/s): 186 ? EDV (cm/s): 0 Renal Artery Ostium, Right ? PSV (cm/s): 151 ? EDV (cm/s): 48 Renal Artery Proximal, Right ? PSV (cm/s): 143 ? EDV (cm/s): 50 ? RAR: 0.8 ? RI: 0.65 Renal Artery Mid, Right ? PSV (cm/s): 157 ? EDV (cm/s): 53 ? RAR: 0.8 ? RI: 0.66 Renal Artery Distal, Right ? PSV (cm/s): 154 ? EDV (cm/s): 54 ? RAR: 0.8 ? RI: 0.65 Mid Pole Renal Parenchyma, Right ? PSV (cm/s): 32 ? EDV (cm/s): 13 ? RI: 0.60 Renal Hilum, Right ? AT (ms): 34 Kidney Length, Right ? Length (cm): 10.7 Renal Vein, Right ? Patent: Patent Renal Artery Ostium, Left ? PSV (cm/s): 111 ? EDV (cm/s): 39 Renal Artery Proximal, Left ? PSV (cm/s): 142 ? EDV (cm/s): 40 ? RAR: 0.8 ? RI: 0.72 Renal Artery Mid, Left ? PSV (cm/s): 109 ? EDV (cm/s): 37 ? RAR: 0.6 ? RI: 0.67 Renal Artery Distal, Left ? PSV (cm/s): 146 ? EDV (cm/s): 52 ? RAR: 0.8 ? RI: 0.65 Mid Pole Renal Parenchyma, Left ? PSV (cm/s): 42 ? EDV (cm/s): 17 ? RI: 0.61 Renal Hilum, Left ? AT (ms): 54 Kidney Length, Left ? Length (cm): 10.8 Renal Vein, Left ? Patent: Patent Interpretation: Right: Patent main renal artery with no evidence of hemodynamically significant stenosis. Patent main renal vein. Left: Patent main renal artery with no evidence of hemodynamically significant stenosis. Patent main renal vein. Comparison: ??No previous study in our vascular lab database for comparison. Electronically Signed by: BRAULIO MENDEZ MD on 2019-08-13 12:10:35 PM VASCUBASE VB Text Report End of Report VASCUBASE 08/09/2019 10:0 5 AM EDT Nona Huggins DO VASCULAR ORDERABLES VASCUBASE documented in this encounter Visit Diagnoses Diagnosis Hypertension, unspecified type Hypoplasia of aortic arch Coarctation of aorta (preductal) (postductal) Hypertension, unspecified type Hypoplasia of aortic arch Coarctation of aorta (preductal) (postductal) documented in this encounter Care Teams Production Technologist Relationship Specialty Start Date End Date Malcolm Yi MD [address] [place] [address] PCP - General Pediatrics 12/22/18 06/29/21 documented as of this encounter
--- OUTSIDE RECORDS SUMMARY | 2023-09-15 15:36 | XMS_ITS | Encounter Summary ---
Author Organization [facility] [place] [address] Care Team Providers Care Cap Parts Cutter Name Role Phone Malcolm Yi MD Primary Care Provider [phone] Encounter Details Date Type Department Care Team (Late st Contact Info) Description 12/28/2018 Telephone [place] [address] Luisana Walsh MD [facility] [place] [address] Social History Tobacco Use Types Packs/Day Years Used Date Smoking Tobacco: Never Smokeless Tobacco: Never Sex and Gender Information Value Date Recorded Sex Assigned at Not on file Gender Identity Not on file Sexual Orientation Not on file documented as of this encounter Miscellaneous Notes * Telephone Encounter - Arleth Wilkinson RN - 12/28/2018 2:24 PM EST 24 hr KEI monitor registration form completed online via First Call and copy given to US Anaid. documented in this encounter Plan of Treatment Upcoming Encounters Date Type Department Care Team (Late st Contact Info) Description 10/04/2023 9:30 AM EDT Appointment [place] [address] Luisana Walsh MD [facility] [place] [address] 10/04/2023 10:30 AM EDT Scheduled View Only [place] [phone] 10/04/2023 11:00 AM EDT Office Visit [place] [phone] Luisana Walsh MD [facility] [place] [address] 10/04/2023 11:30 AM EDT Office Visit [place] [phone] Kam Huggins, DO 100 [facility] PEDIATRIC [place] [address] documented as of this encounter Visit Diagnoses Not on filedocumented in this encounter Care Teams Cap Parts Cutter Relationship Specialty Start Date End Date Malcoml Yi MD [address] [place] [address] PCP - General Pediatrics 12/22/18 06/29/21 documented as of this encounter
--- OUTSIDE RECORDS SUMMARY | 2023-09-15 15:36 | XMS_ITS | Encounter Summary ---
Author [place] [address] Care Team Providers Care Supervisor Wheel Shop Name Role Phone Malcolm Yi MD Primary Care Provider [phone] Encounter Details Date Type Department Care Team (Late st Contact Info) Description 08/09/2019 12:54 PM EDT - 08/09/2019 11:59 PM EDT Hospital Encounter [place] [phone] Kam Huggins, DO 100 [facility] [place] [address] Hypertension, unspecified type; Hypoplasia of aortic arch Discharge Disposition: Home Social History Tobacco Use Types Packs/Day Years Used Date Smoking Tobacco: Never Smokeless Tobacco: Never Sex and Gender Information Value Date Recorded Sex Assigned at Not on file Gender Identity Not on file Sexual Orientation Not on file documented as of this encounter Medications at Time of Discharge Medication Sig Dispensed Refills Start Date End Date levocetirizine (XYZAL) 5 mg Tablet Take by mouth. 06/08/2018 montelukast (Singulair) 5 mg Tablet, Chewable Take by mouth. 08/07/2018 documented as of this encounter Plan of Treatment Upcoming Encounters Date Type Department Care Team (Late st Contact Info) Description 10/04/2023 9:30 AM EDT Appointment Pediatric [place] [phone] Luisana Walsh MD [facility] [place] [address] 10/04/2023 10:30 AM EDT Scheduled View Only Pediatric [place] [address] 10/04/2023 11:00 AM EDT Office Visit Pediatric [place] [address] Luisana Walsh MD [facility] [place] [address] 10/04/2023 11:30 AM EDT Office Visit Pediatric [place] [address] Kam Huggins, DO [address] [facility] [place] [address] documented as of this encounter Procedures Procedure Name Priority Date/Time Associated Diagnosis Comments US RETROPERITONEAL COMPLETE Routine 08/09/2019 1:18 PM EDT Hypertension, unspecified type Hypoplasia of aortic arch documented in this encounter Results * US Retroperitoneal Complete [...] 02:44 pm) PATIENT INFO: ID #: ? [id number] ?: ??[birth year] (13 yrs)(Shola) Name: ? AURELIANO MCCARTY ? Visit Date: 08/09/2019 12:55 pm PERFORMED BY: Performed By: ? Manisha Ronquillo RDMS Attending: ?Latrell GANDARA, Skye Leahy Resident: ? Valerie GANDARA, Umm Jimenez Referred By: ?KAM Jolley [facility] Location: ? [place] SERVICE(S) PROVIDED: ??URETRO - Retroperitoneal Complete ( Pediatric) - ?[id number] ??[id number] INDICATIONS: ??h/o hypertension and aortic arch hypolasia [...] 08/09/2019 02:44 pm) PATIENT INFO: ID #: [id number] : [birth year] (13 yrs)(M) Name: AURELIANO MCCARTY Visit Date: 08/09/2019 12:55 pm PERFORMED BY: Performed By: Manisha Ronquillo RDMS Attending: Skye Sams MD Resident: Umm Padilla MD Referred By: KAM HUGGINS Location: [place] SERVICE(S) PROVIDED: URETRO - Retroperitoneal Complete ( Pediatric) - [id number] INDICATIONS: h/o hypertension and aortic arch hypolasia [...] Electronically Signed Final Report 08/09/2019 02:44 pm Kam Huggins DO IMG US GEN ORDERABLE S documented in this encounter Visit Diagnoses Diagnosis Hypertension, unspecified type Hypoplasia of aortic arch Coarctation of aorta (preductal) (postductal) documented in this encounter Care Teams Supervisor Wheel Shop Relationship Specialty Start Date End Date Malcolm Yi MD [address] [place] [address] PCP - General Pediatrics 12/22/18 06/29/21 documented as of this encounter
--- OUTSIDE RECORDS SUMMARY | 2023-09-15 15:36 | XMS_ITS | Encounter Summary ---
Author Organization Formerly [facility] [place] [address] Care Team Providers Care Tipple Mechanic Name Role Phone Malcolm Yi MD Primary Care Provider [phone] Encounter Details Date Type Department Care Team (Latest Contact Info) Description 05/11/2021 8:55 AM EDT Laboratory Appointment Lab [address] [place] [phone] Hyperlipidemia, unspecified hyperlipidemia type Social History Tobacco Use Types Packs/Day [...] 9:30 AM EDT Appointment [place] [phone] Luisana Walsh MD [facility] [place] [address] 10/04/2023 10:30 AM EDT Scheduled View [place] [phone] 10/04/2023 11:00 AM EDT Office [place] [address] Luisana Arceo MD [facility] [place] [address] 10/04/2023 11:30 AM EDT Office Visit Pediatric Nephrology at [facility] [place] [address] BhavnaKam, DO 100 [facility] PEDIATRIC [place] [address] documented as of this encounter Procedures Procedure Name Priority Date/Time Associated Diagnosis Comments HC VENIPUNCTURE Routine 05/11/2021 9:12 AM EDT Hyperlipidemia, unspecified hyperlipidemia type documented in this encounter Results * Lipid Panel (Reflex Direct LDL) (05/11/2021 9:12 AM EDT) Chol, Total 202 mg/dL [facility] Comment: Lower Risk: <200 mg/dL Average Risk: 200-239 mg/dL Higher Risk: >kh=233 mg/dL Triglycerides 100 mg/dL [facility] Comment: Average Risk/Lower Risk: <150 mg/dL Borderline High Risk: 150-199 mg/dL High Risk: 200-499 mg/dL Very High Risk: >ce=067 mg/dL HDL 45 mg/dL [facility] Comment: Males: ?? Higher Risk: <40 mg/dL Females: ?? Higher Risk: <50 mg/dL LDL Cholesterol 137 mg/dL [facility] Comment: Lowest Risk: <100 mg/dL Lower Risk: 100-129 mg/dL Borderline High Risk: 130-159 mg/dL High Risk: 160-189 mg/dL Very High Risk: >ne=114 mg/dL Chol/HDL Ratio 4.5 ratio [facility] Lipid Interpretation See Note [facility] Comment: Lipid management should be guided by a patient? s ASCVD risk, goals and preferences. ACC/AHA Guidelines recommend high intensity statin if clinical ASCVD or LDL greater than or equal to 190 mg/dL. http://tinyurl.com/JKQ-XRQ-Gllmsdlrl Adults aged 40-75 with LDL 70-189 mg/dL should have their 10 year ASCVD risk estimated with the ACC/AHA ASCVD risk auto body repair estimator http://tools.acc.org/DKFBV-Hnas-Bbgamlbvn/ Statin should be discussed if risk greater than or equal to 7.5% in non-diabetics. With diabetes, moderate intensity statin is recommended if risk less than 7.5%, high intensity if risk greater than or equal to 7.5%. Annual lipid monitoring on statins is not necessary. Evaluate secondary causes of Triglycerides greater than 500 mg/dL or LDL greater than 190 mg/dL: See table 6 of ACC/AHA Guideline. Lifestyle modification is a critical component of ASCVD risk reduction. Blood 05/11/2021 9:12 AM EDT 05/11/2021 9:24 AM EDT Narrative Resulting Agency Comment Spec In Lab Luisana Walsh MD CHEMISTRY ORDERABL ES Performing Organization Address City/State/[facility] Co de Phone Number [facility] [place] [phone] documented in this encounter Visit Diagnoses Diagnosis Hyperlipidemia, unspecified hyperlipidemia type documented in this encounter Care Teams Tipple Mechanic Relationship Specialty Start Date End Date Malcolm Yi MD [address] [place] [address] PCP - General Pediatrics 12/22/18 06/29/21 documented as of this encounter
--- OUTSIDE RECORDS SUMMARY | 2023-09-15 15:36 | XMS_ITS | Encounter Summary ---
[place] [address] Care Team Providers Care Project Production Engineer Name Role Phone Malcolm Yi MD Primary Care Provider [phone] Encounter Details Date Type Department Care Team (Late st Contact Info) Description 05/19/2021 9:00 AM EDT Office Visit [place] [address] Kam Huggins, DO 100 [facility]ACED BY [facility] PEDIATRIC [place] [address] Hypertension, unspecified type Social History Tobacco Use Types Packs/Day Years Used Date Smoking Tobacco: Never Smokeless Tobacco: Never Sex and Gender Information Value Date Recorded Sex Assigned at Not on file Gender Identity Not on file Sexual Orientation Not on file documented as of this encounter Last Filed Vital Signs Vital Sign Reading Time Taken Comments Blood Pressure 133/75 05/19/2021 8:51 AM EDT Pulse 51 05/19/2021 8:51 AM EDT Temperature - - Respiratory Rate - - Oxygen Saturation - - Inhaled Oxygen Concentration - - Weight 74.3 kg (163 lb 12.8 oz) 05/19/2021 8:51 AM EDT Height 176 cm (5' 9.29) 05/19/2021 8:51 AM EDT Body Mass Index 23.99 05/19/2021 8:51 AM EDT Body Mass Index Percentile 76.84% 05/19/2021 8:5 1 AM EDT Growth Chart: CDC (Boys, 2-2 0 Years) documented in this encounter Patient Instructions * Patient Instructions* BhavnaKam, DO - 05/19/2021 9:27 AM EDT Aureliano's Plan: Will see back in 6 months Continue current therapies Prior recs The anti-inflammatory diet I recommend increasing fruits and vegetables up to at least 5 servings per day, use olive oil or canola oil only, increase grains and keep noodles al dente. Smoothies are agreat way to increase your fruit intake. You could add ground flax seed to it to add the Leopold 3???s. We can discuss the elimination diet [...] 1 tsp of the oil. KiddOmega from [employer], 1 tsp a day, from Skem[employer] or [employer], Daz 3domeLifeShield Leopold-3 (350 mg of EPA and 230 mg of DHA per packet) are ones I commonly used in children. Also consider [place] flavored omega 3???s or [place] [employer] Juan M chewables. If you choose [...] biofeedback instead, I recommend the system at WebRadar, Cinegif or we can work with you here [...] http://www.mindfulnesstapes.com/ Dr Hernandez Miller's mindfulness meditation tapes http://www.Zirtual.E-Buy/pmr.htm Guide to progressive muscle relaxation http://www.QRxPharma/health/yoga/ML76490 5 Yoga poses for stress management http://www.Pristine.io.org/ Connecting students with teachers in the area. www.youPointAcross.com Search for meditation, relaxation, guided visualization or yoga. Keep sifting through until you find what you like and then write it down so you can revisit. http://www.[facility].edu/files/webfm-uploads/documents/outreach/im/module_medi tation_patient.pdf Handout on types of meditation/CDs: Breathing: the Master Busby to Self-Healing (Chad Ponce) Relieve Anxiety (Jose Mckoy), also Deep Sleep (Leelee) For Breath work consider: http://doIntelomed.com/Default.aspx Botanicals/Supplements Dark chocolate (70% cocoa content) in place of other sweets Consider coenzyme Q10 100-400 mg a day Consider hawthorn, an herb which promotes overall cardiovascular health OK for 24 hr bp monitor documented in this encounter Progress Notes * Kam Huggins DO - 05/19/2021 9:00 AM EDT Pediatric Nephrology/Integrative Medicine Progress Note Aureliano Autumn Mancilla is an 15 y.o. 6 m.o. male with elevated BP who we are seeing for integrative techniques regarding the above. Referred by Malcolm Yi MD * Please note: speech recognition soft ricks was used to generate this report. Although it is proofed for any obvious mistakes, please excuse any spelling or incorrect grammar that may have been missed. HISTORY OF PRESENT ILLNESS He has been doing well. No symptomatic changes. He has continued his fish oil and added co-Q10. He was seen by cardiology, ordered a 24 hr bp monitor. Continues with sports, here with dad. Denies any other neurologic, rheumatologic, GI, pulmonary, [...] 100 mg Capsule Take by mouth. ??? Leopold-3 Fatty Acids 100 mg Tablet, Chewable Take [...] Cat Dander Itching PHYSICAL EXAM Constitutional: BP 133/75 Pulse (!) 51 Ht 176 cm (5' 9.29) Wt 74.3 kg (163 lb 12.8 oz) BMI23.99 kg/m?? General Appearance: alert, well appearing and [...] deficit Skin: normal ASSESSMENT Aureliano is a 15 y.o. 6 m.o. male with elevated BP [...] doing well. No symptomatic changes. He has continued his fish oil and added co-Q10. He was seen by cardiology, ordered a 24 hr bp monitor. Continues with sports, here with dad. When looking at high blood pressure, the [...] would be thyroid issues, adrenal issues and DOORPERSON disease- all of which typically have more [...] conventional medicine, whole systems such as traditional [place] medicine, Ayurvedic medicine, Western medicine and homeopathy, nutrition,exercise, supplements, botanical medicine, mind body therapies, energy medicine, manual manipulation, and spirituality. I think there are a number of things that we can do for Aureliano to help as indicated below. PLAN I recommend the following plan for Aureliano: Patient Instructions Aureliano's Plan: Will see back in 6 months Continue current therapies Prior recs The anti-inflammatory diet I recommend increasing fruits and vegetables up to at least 5 servings per day, use olive oil or canola oil only, increase grains and keep noodles al dente. Smoothies are agreat way to increase your fruit intake. You could add ground flax seed to it to add the Leopold 3???s. We can discuss the elimination diet [...] 1 tsp of the oil. KiddOmega from [employer], 1 tsp a day, from Sk[employer] or [employer], Daz 3drubénLifeShield Leopold-3 (350 mg of EPA and 230 mg of DHA per packet) are ones I commonly used in children. Also consider [place] flavored omega 3???s or [place] [employer] Juan M chewables. If you choose [...] biofeedback instead, I recommend the system at Web[employer], Cinegif or we can work with you here [...] http://www.mindfulnesstapes.com/ Dr Hernandez Miller's mindfulness meditation tapes http://www.Zirtual.E-Buy/pmr.htm Guide to progressive muscle relaxation http://www.Lytics.E-Buy/health/yoga/CT71366 5 Yoga poses for stress management http://www.Pristine.io.org/ Connecting students with teachers in the area. www.pSiFlow Technology.com Search for meditation, relaxation, guided visualization or yoga. Keep sifting through until you find what you like and then write it down so you can revisit. http://www.[facility].edu/files/webfm-uploads/documents/outreach/im/module_medi tation_patient.pdf Handout on types of meditation/CDs: Breathing: the Master Busby to Self-Healing (Chad Ponce) Relieve Anxiety (Jose Mckoy), also Deep Sleep (Leelee) For Breath work consider: http://doIntelomed.com/Default.aspx Botanicals/Supplements Dark chocolate (70% cocoa content) in place of other sweets Consider coenzyme Q10 100-400 mg a day Consider hawthorn, an herb which promotes overall cardiovascular health OK for 24 hr bp monitor I had an extensive visit (30 minutes) [...] 9:30 AM EDT Appointment [place] [address] Luisana Walsh MD [facility] [place]EDIATRIC [place] [address] 10/04/2023 10:30 AM EDT Scheduled View [place] [address] 10/04/2023 11:00 AM EDT Office [place] [address] Luisana Walsh MD [facility] [place]EDIATRIC [place] [address] 10/04/2023 11:30 AM EDT Office Visit [place] [address] Kam Huggins, DO 100 [facility]ACED BY [facility] PEDIATRIC [place] [address] documented as of this encounter Visit Diagnoses Diagnosis Hypertension, unspecified type documented in this encounter Care Teams Project Production Engineer Relationship Specialty Start Date End Date Malcolm Yi MD [address] [place] [address] PCP - General Pediatrics 12/22/18 06/29/21 documented as of this encounter
--- OUTSIDE RECORDS SUMMARY | 2023-09-15 15:36 | XMS_ITS | Encounter Summary ---
[place] [address] Care Team Providers Care Currency Examiner Name Role Phone Malcolm Yi MD Primary Care Provider [phone] Encounter Details Date Type Department Care Team (Late st Contact Info) Description 06/01/2021 Notes Only [place] [address] Álvaro Lee, RN Social History Tobacco Use Types Packs/Day Years Used Date Smoking Tobacco: Never Smokeless Tobacco: Never Sex and Gender Information Value Date Recorded Sex Assigned at Not on file Gender Identity Not on file Sexual Orientation Not on file documented as of this encounter Progress Notes * Álvaro Lee, RN - 06/01/2021 8:16 AM EDT 24 hour ABP report available from [facility]. Printed and given to US Bryce. Final results pending. documented in this encounter Plan of Treatment Upcoming Encounters Date Type Department Care Team (Late st Contact Info) Description 10/04/2023 9:30 AM EDT Appointment [place] [phone] Luisana Walsh MD [facility] DR [place]EDIATRIC [place] [address] 10/04/2023 10:30 AM EDT Scheduled View Only [place] [address] 10/04/2023 11:00 AM EDT Office Visit [place] [address] Luisana Walsh MD [facility] DR [place] [address] 10/04/2023 11:30 AM EDT Office Visit [place] [phone] Kam Huggins, DO 100 [facility] [place] [address] documented as of this encounter Visit Diagnoses Not on filedocumented in this encounter Care Teams Currency Examiner Relationship Specialty Start Date End Date Malcolm Yi MD [address] [place] [address] PCP - General Pediatrics 12/22/18 06/29/21 documented as of this encounter
--- OUTSIDE RECORDS SUMMARY | 2023-09-15 15:36 | XMS_ITS | Encounter Summary ---
Author Organization [facility] [place] [address] Care Team Providers Care Fisher Terrapin Name Role Phone Malcolm Yi MD Primary Care Provider [phone] Encounter Details Date Type Department Care Team (Late st Contact Info) Description 08/09/2019 10:00 AM EDT Tech [place] [phone] Kristofer Mclean, RVT Hypertension, unspecified type; Hypoplasia of aortic arch [...] 9:30 AM EDT Appointment [place] [address] Luisana Walsh MD [facility] [place]EDIATRIC [place] [address] 10/04/2023 10:30 AM EDT Scheduled View [place] [phone] 10/04/2023 11:00 AM EDT Office [place] [address] Luisana Walsh MD [facility] [place]EDIATRIC [place] [address] 10/04/2023 11:30 AM EDT Office Visit Pediatric Nephrology at [facility] [place] [address]1000 Nona Huggins, DO 100 [facility] PEDIATRIC [place] [address] documented as of this encounter Procedures Procedure Name Priority Date/Time Associated Diagnosis Comments RENAL DUPLEX COMPLETE Routine 08/09/2019 10:05 AM EDT Hypertension, unspecified type Hypoplasia of aortic arch documented in this encounter Results * Duplex Study Renal Arteries, Bilat (08/09/2019 10:05 AM EDT) VB Text Report Department: Vascular Surgery Lab Patient: [id number] (AURELIANO MCCARTY) CPT: 22041 ICD10: I10;Q25.42 Referring Physician: NONA HUGGINS ?? [...] VASCUBASE 08/09/2019 10:0 5 AM EDT Nona M Hand DO VASCULAR ORDERABLES VASCUBASE documented in this encounter Visit Diagnoses Diagnosis Hypertension, unspecified type Hypoplasia of aortic arch Coarctation of aorta (preductal) (postductal) documented in this encounter Care Teams Fisher Terrapin Relationship Specialty Start Date End Date Malcolm Yi MD [address] [place] [address] PCP - General Pediatrics 12/22/18 06/29/21 documented as of this encounter
--- OUTSIDE RECORDS SUMMARY | 2023-09-15 15:36 | XMS_ITS | Encounter Summary ---
[place] [address] Care Team Providers Care Yarn Polishing Machine Operator Name Role Phone Malcolm Yi MD Primary Care Provider [phone] Encounter Details Date Type Department Care Team (Late st Contact Info) Description 01/05/2019 Telephone Pediatric [place] [phone] Arleth Goldberg RN Social History Tobacco Use Types Packs/Day Years Used Date Smoking Tobacco: Never Smokeless Tobacco: Never Sex and Gender Information Value Date Recorded Sex Assigned at Not on file Gender Identity Not on file Sexual Orientation Not on file documented as of this encounter Miscellaneous Notes * Telephone Encounter - Arleth Wilkinson RN - 01/05/2019 9:29 AM EST Holter results printed from [facility] and given to US Anaid. documented in this encounter Plan of Treatment Upcoming Encounters Date Type Department Care Team (Late st Contact Info) Description 10/04/2023 9:30 AM EDT Appointment Pediatric [place] [phone] Luisana Walsh MD [facility] DR PEDIATRIC [place] [address] 10/04/2023 10:30 AM EDT Scheduled View Only [place] [address] 10/04/2023 11:00 AM EDT Office Visit [place] [phone] Luisana Walsh MD [facility] [place] [address] 10/04/2023 11:30 AM EDT Office Visit Pediatric [place] [phone] Kam Huggins, DO 100 [facility] PEDIATRIC [place] [address] documented as of this encounter Visit Diagnoses Not on filedocumented in this encounter Care Teams Yarn Polishing Machine Operator Relationship Specialty Start Date End Date Malcolm Yi MD [address] [place] [address] [place] [address] PCP - General Pediatrics 12/22/18 06/29/21 documented as of this encounter
--- OUTSIDE RECORDS SUMMARY | 2023-09-15 15:36 | XMS_ITS | Encounter Summary ---
[place] [address] Care Team Providers Care Ice Cream Chef Name Role Phone Malcolm Yi MD Primary Care Provider [phone] Encounter Details Date Type Department Care Team (Late st Contact Info) Description 05/01/2021 Orders Only Pediatric [place] [phone] Luisana Walsh MD [facility] [place] [address] Hypertension, unspecified type; Hyperlipidemia, unspecified hyperlipidemia type Social History Tobacco [...] 9:30 AM EDT Appointment Pediatric [place] [phone] Luisana Walsh MD [facility] [place] [address] 10/04/2023 10:30 AM EDT Scheduled View Only Pediatric [place] [phone] 10/04/2023 11:00 AM EDT Office Visit [place] [phone] Luisana Walsh MD [facility] [place] [address] 10/04/2023 11:30 AM EDT Office Visit [place] [address] Kam Huggins, DO 100 [facility] [place] [address] documented as of this encounter Results * Lipid Panel (Reflex Direct LDL) (05/11/2021 9:12 AM EDT) Chol, Total 202 mg/dL [facility] Comment: Lower Risk: <200 mg/dL Average Risk: 200-239 mg/dL Higher Risk: >wz=235 mg/dL Triglycerides 100 mg/dL [facility] Comment: Average Risk/Lower Risk: <150 mg/dL Borderline High Risk: 150-199 mg/dL High Risk: 200-499 mg/dL Very High Risk: >in=490 mg/dL HDL 45 mg/dL [facility] Comment: Males: ?? Higher Risk: <40 mg/dL Females: ?? Higher Risk: <50 mg/dL LDL Cholesterol 137 mg/dL [facility] Comment: Lowest Risk: <100 mg/dL Lower Risk: 100-129 mg/dL Borderline High Risk: 130-159 mg/dL High Risk: 160-189 mg/dL Very High Risk: >eb=710 mg/dL Chol/HDL Ratio 4.5 ratio [facility] Lipid Interpretation See Note [facility] Comment: Lipid management should be guided by a patient? s ASCVD risk, goals and preferences. ACC/AHA Guidelines recommend high intensity statin if clinical ASCVD or LDL greater than or equal to 190 mg/dL. http://Gate2Playurl.com/KWM-QDL-Cdgtenkfp Adults aged 40-75 with LDL 70-189 mg/dL should have their 10 year ASCVD risk estimated with the ACC/AHA ASCVD risk building estimator http://tools.acc.org/BQGEJ-Jxra-Xhmqesopy/ Statin should be discussed if risk greater [...] Lab Luisana Walsh MD CHEMISTRY ORDERABL ES [facility] [place] [address] documented in this encounter Visit Diagnoses Diagnosis Hypertension, unspecified type Hyperlipidemia, unspecified hyperlipidemia type documented in this encounter Care Teams Ice Cream Chef Relationship Specialty Start Date End Date Malcolm Yi MD [address] [place] [place] [address] PCP - General Pediatrics 12/22/18 06/29/21 documented as of this encounter
--- OUTSIDE RECORDS SUMMARY | 2023-09-15 15:36 | XMS_ITS | Encounter Summary ---
Author Organization formerly [place] [address] Care Team Providers Care Falsework Builder Name Role Phone Malcolm Yi MD Primary Care Provider [phone] Reason for Visit * Reason Comments Hypertension Encounter Details Date Type Department Care Team (Latest Contact Info) Description 02/05/2019 Unscheduled Encounter [place] [address] Luisana Walsh MD [facility] [place] [address] Elevated blood pressure reading without diagnosis of hypertension Social History Tobacco Use Types Packs/Day Years Used Date Smoking Tobacco: Never Smokeless Tobacco: Never Sex and Gender Information Value Date Recorded Sex Assigned at Not on file Gender Identity Not on file Sexual Orientation Not on file documented as of this encounter Progress Notes * Luisana Walsh MD - 02/05/2019 8:46 AM EST Hookup date & time: 01/01/19 5:56 AM Recording time: 24 hours FINDINGS: OVERALL: Systolic: 125 mmHg (range 94-142), Dipping [...] 26.6% % time above diastolic limits: 26.6% IMPRESSION: Ambulatory blood pressure monitoring is consistent with a diagnosis of Elevated blood pressure, based on the updated 2017 AAP definition of abnormal blood pressure (listed below). Aureliano's overall systolic and diastolic average blood pressures were 125/65 with <10% of all recordings being abovelimits, so he fits in the elevated BP range, and does not meet criteria for stage 1 or 2 hypertension. There is no need for the initiation of blood pressure medications at this time. BP will be re-evaluated at the 6 month follow up visit. AAP Clinical Practice Guideline for Screening and [...] 2 HTN: ?140/90 mm?Hg Luisana Walsh MD [facility] Pediatric Cardiology documented in this encounter Plan of Treatment Upcoming Encounters Date Type Department Care Team (Late st Contact Info) Description 10/04/2023 9:30 AM EDT Appointment [place] [phone] Luisana Walsh MD [facility] [place] [address] 10/04/2023 10:30 AM EDT Scheduled View [place] [address] 10/04/2023 11:00 AM EDT Office [place] [address] Luisana Walsh MD [facility] [place] [address] 10/04/2023 11:30 AM EDT Office [place] [address] Kam Huggins, DO 100 [facility] [place] [address] documented as of this encounter Visit Diagnoses Diagnosis Elevated blood pressure reading without diagnosis of hypertension documented in this encounter Care Teams Falsework Builder Relationship Specialty Start Date End Date Malcolm Yi MD [address] [place] [address] PCP - General Pediatrics 12/22/18 06/29/21 documented as of this encounter
--- OUTSIDE RECORDS SUMMARY | 2023-09-15 15:36 | XMS_ITS | Encounter Summary ---
[place] [address] Care Team Providers Care Associate Buyer Name Role Phone Malcolm iY MD Primary Care Provider [phone] Encounter Details Date Type Department Care Team (Late st Contact Info) Description 05/18/2021 Telephone [place] [phone] Álvaro Lee, RN Social History Tobacco Use Types Packs/Day Years Used Date Smoking Tobacco: Never Smokeless Tobacco: Never Sex and Gender Information Value Date Recorded Sex Assigned at Not on file Gender Identity Not on file Sexual Orientation Not on file documented as of this encounter Miscellaneous Notes * Telephone Encounter - Álvaro Lee, RN - 05/18/2021 9:07 AM EDT Patient registered for 24 hour BP monitor via [facility] documented in this encounter Plan of Treatment Upcoming Encounters Date Type Department Care Team (Late st Contact Info) Description 10/04/2023 9:30 AM EDT Appointment [place] [phone] Luisana Walsh MD [facility] [place] [address] 10/04/2023 10:30 AM EDT Scheduled View [place] [address] 10/04/2023 11:00 AM EDT Office Visit [place] [address] Luisana Walsh MD [facility] DR PEDIATRIC [place] [address] 10/04/2023 11:30 AM EDT Office Visit [place] [phone] Kam Huggins, DO [address] [facility] [place] [address] documented as of this encounter Visit Diagnoses Not on filedocumented in this encounter Care Teams Associate Buyer Relationship Specialty Start Date End Date Malcolm Yi MD [address] [place] [address] [place] [address] PCP - General Pediatrics 12/22/18 06/29/21 documented as of this encounter
--- OUTSIDE RECORDS SUMMARY | 2023-09-15 15:36 | XMS_ITS | Encounter Summary ---
[place] [address] Care Team Providers Care Funeral Pre Arrangement Specialist Name Role Phone Unknown Primary Care Provider Unavailabl e Encounter Details Date Type Department Care Team (Late st Contact Info) Description 11/19/2021 Telephone [place] [phone] Álvaro Lee, RN Social History Tobacco Use Types Packs/Day Years Used Date Smoking Tobacco: Never Smokeless Tobacco: Never Sex and Gender Information Value Date Recorded Sex Assigned at Not on file Gender Identity Not on file Sexual Orientation Not on file documented as of this encounter Miscellaneous Notes * Telephone Encounter - Álvaro Lee, RN - 11/19/2021 10:46 AM EDT Spoke with mom, Manisha. Aureliano did the ABPM monitor this past spring over a weekend and was not active-he just relaxed around the house. There is family history of hypertension on maternal side; both of Manisha's parents and grandparentsall have/had hypertension and on medication. Manisha herself does not. He is due for f/u with Dr. Huggins in Nephrology, so I will send message to their manager payer for scheduling and ask if we can obtain upper and lower BP checks while at that appointment. ----- Message from Luisana Walsh MD sent at 11/04/2021 3:15 PM EDT ----- Regarding: ABPM results and follow up Lupe Barrera, I just read Aureliano's ABPM from May - very delayed. Please let family know I apologize for this. It is actually pretty abnormal compared to the prior. The first question would be what he was doingthe day the monitor was in place? Was he super active? Did he sleep well at night. 90% of his readings both in awake and asleep periods were elevated, and to the 140's, so definitely high. If we think this is real, then the next step is to get him in for upper and lower blood pressure checks in the office. This can at his PCP office. We need accurate right arm and either leg BP. This can be done here if they prefer. His echo does not indicate any significant obstruction at his arch, so we may need to do more investigation to find a cause if these are abnormal. Or this is just familial, as there is a family history. Luisana Bah documented in this encounter Plan of Treatment Upcoming Encounters Date Type Department Care Team (Late st Contact Info) Description 10/04/2023 9:30 AM EDT Appointment [place] [address] Luisana Walsh MD [facility] [place] [address] 10/04/2023 10:30 AM EDT Scheduled View Only [place] [phone] 10/04/2023 11:00 AM EDT Office Visit [place] [phone] Luisana Walsh MD [facility] [place] [address] 10/04/2023 11:30 AM EDT Office Visit [place] [phone] Kam Huggins, DO [address] [facility]EDIATR[facility] [place] [address] documented as of this encounter Visit Diagnoses Not on filedocumented in this encounter Care Teams Funeral Pre Arrangement Specialist Relationship Specialty Start Date End Date Unknown None PCP - General 06/30/21 10/02/22 documented as of this encounter
[2023-09-17 10:03] LABS: Lipoprotein (a) 94 nmol/L (<75)
== END 2023-09-15 15:29 | disposition home or self-care (01) ==
LOC: LBO 15:34
PROVIDERS: PCP Student in an Organized Health Care Education/Training Program; Visit Provider Pediatrics Pediatric Cardiology
DX: E78.00 Pure hypercholesterolemia, unspecified (principal)
CPT/HCPCS: 36415; 80061; 83695